=== PATIENT | male | born 1960 | race Caucasian/White ===

== ENCOUNTER 2021-11-03 12:51 | Inpatient (IN) | payer BC ==
[2021-11-03] MEDS ORDERED: NITROGLYCERIN SL TABS 0.4 MG TAB SUBLINGUAL STA (13:12)
[2021-11-03] MEDS ORDERED: HEPARIN SODIUM 1,000 UN/ML (10ML VL) IV ONE (13:12)
[2021-11-03] MEDS ORDERED: HEPARIN SODIUM 1,000 UN/ML (10ML VL) IV PRN (13:12)
--- NOTE | 2021-11-03 13:18 | ED ---
General Adult HPI - General Chief complaint: Chest Pain Stated complaint: L arm numbness,chest pain Time Seen by Provider: 11/03/21 13:06 Source: patient Mode of arrival: wheelchair Limitations: no limitations - History of Present Illness Initial comments: Dictation was produced using [employer] dictation software. please excuse any grammatical, word or spelling errors. Chief Complaint: 60-year-old male past physical history of diabetes presents to emergency department for chest pain History of Present Illness: 60-year-old male presents emergency department for chest pain. Patient was advised by his primary care doctor and was instructed to come directly to the emergency room. Patient denies any history of cardiac disease. He has history of diabetes takes multiple antidiabetic medications. Patient states his symptoms have been ongoing for last 2-3 days. States it's a pressure in his left anterior chest. It started as left upper extremity. He states he feels some tingling in his fingertips on the left side. Patient d enies any associated shortness of breath. His pain is not exacerbated with movement or with deep inspiration. States it tastes feels like symptoms are worse whenever he lays on his back or on his left side. Patient states that he does have family history of cardiac disease. States that he does have some mild active dull symptoms at this time. The ROS documented in this emergency department record has been reviewed and confirmed by me. Those systems with pertinent positive or negative responses have been documented in the HPI. All other systems are other negative and/or noncontributory. PHYSICAL EXAM: General Impression: Alert and oriented x3, not in acute distress HEENT: Normocephalic atraumatic, extra-ocular movements intact, pupils equal and reactive to light bilaterally, mucous membranes moist. Cardiovascular: Heart regular rate and rhythm Chest: Able to complete full sentences, no retractions, no tachypnea Abdomen: abdomen soft, non-tender, non-distended, no organomegaly Musculoskeletal: Pulses present and equal in all extremities, no peripheral edema Motor: no focal deficits noted Neurological: CN II-XII grossly intact, no focal motor or sensory deficits noted Skin: Intact with no visualized rashes Psych: Normal affect and mood ED course: 60-year-old male presents emergency part with clinical presentation concerning for unstable angina. Vital Signs upon arrival are within acceptable limits. EKG does not show signs of ST segment elevation AR but there are T-wave inversions in inferior leads and septal lateral leads. Patient does have active symptoms. Although mild does still have a ache to his chest radiation to the left upper extremity, his EKG does show ischemic findings.Patient took 2 adult aspirin prior to arrival. Patient started on heparin. He was given sublingual nitroglycerin. Case was immediately discussed with Dr. Ash service station console operator for cardiology. He recommended that patient be treated as an STEMI. Patient given sublingual nitroglycerin with no significant improvement of his symptoms. Laboratory evaluation obtained. CBC unremarkable. Coag panel is negative. Metabolic panel is acceptable limits. Troponin is significantly elevated at 14.90. 3rd EKG was performed at 1403 showing no dynamic changes. Patient stable at the bedside. Still having mild active symptoms. More history was obtained. He states his pain was worse last night compared to today. At the bedside he is not tachycardic or hypoxic. Patient's does still report symptoms. Case is rediscussed with Dr. Ash requested patient be prepared for cardiac catheterization. Dr. Ash reports that he will be here at approximately 3:30 PM today due to cardiac cath. Patient to be admitted to [facility]. EKG interpretation: Ventricular rate 57, [place] interval 140, QRS 95, QTc 441. No [place] prolongation, no QTC prolongation. There are T-wave inversions in the inferior leads and V3 to V6. There is no old EKG for comparison. Initial EKG was p erformed at 1300, repeat EKG performed at 1314 shows no dynamic changes. - Related Data Home Medications Medication Instructions Recorded Confirmed Acetaminophen Tab [Tylenol Tab] 1,000 mg PO Q6HR PRN 11/03/21 11/03/21 Aspirin EC [Ecotrin] 650 mg PO DAILY PRN 11/03/21 11/03/21 Pioglitazone [Actos] 45 mg PO DAILY 11/03/21 11/03/21 glipiZIDE [Glucotrol] 10 mg PO AC-BRKFST 11/03/21 11/03/21 metFORMIN HCL [Glucophage] 1,000 mg PO BID 11/03/21 11/03/21 Allergies Allergy/AdvReac Type Severity Reaction Status Date / Time No Known Allergies Allergy Verified 11/03/21 14:08 Review of Systems ROS Statement: Those systems with pertinent positive or pertinent negative responses have been documented in the HPI. ROS Other: All systems not noted in ROS Statement are negative. Past Medical History Past Medical History: Diabetes Mellitus History of Any Multi-Drug Resistant Organisms: None Reported Past Surgical History: No Surgical Hx Reported Past Psychological History: No Psychological Hx Reported Smoking Status: Current every day smoker Past Alcohol Use History: None Reported Past Drug Use History: None Reported General Exam Limitations: no limitations Course Vital Signs 11/03/21 11/03/21 12:53 13:49 Temperature 97.9 F 98.0 F Pulse Rate 76 55 L Respiratory 18 20 Rate Blood Pressure 187/95 149/84 O2 Sat by Pulse 99 96 Oximetry Medical Decision Making - Lab Data Result diagrams: 11/03/21 13:20 11/03/21 13:20 Lab Results 11/03/21 11/03/21 11/03/21 Range/Units 13:20 13:20 13:20 WBC 9.2 (3.8-10.6) k/uL RBC 4.94 (4.30-5.90) m/uL Hgb 15.0 (13.0-17.5) gm/dL Hct 43.6 (39.0-53.0) % MCV 88.1 (80.0-100.0) fL MCH 30.3 (25.0-35.0) pg MCHC 34.4 (31.0-37.0) g/dL RDW 13.2 (11.5-15.5) % Plt Count 256 (150-450) k/uL MPV 7.8 Neutrophils % 68 % Lymphocytes % 23 % Monocytes % 6 % Eosinophils % 1 % Basophils % 1 % Neutrophils # 6.3 (1.3-7.7) k/uL Lymphocytes # 2.1 (1.0-4.8) k/uL Monocytes # 0.5 (0-1.0) k/uL Eosinophils # 0.1 (0-0.7) k/uL Basophils # 0.1 (0-0.2) k/uL PT 10.7 (9.0-12.0) sec INR 1.0 (<1.2) APTT 25.8 (22.0-30.0) sec Sodium 135 L (137-145) mmol/L Potassium 3.8 (3.5-5.1) mmol/L Chloride 101 (98-107) mmol/L Carbon Dioxide 26 (22-30) mmol/L Anion Gap 8 mmol/L BUN 14 (9-20) mg/dL Creatinine 0.73 (0.66-1.25) mg/dL Est GFR (CKD-EPI)AfAm >90 (>60 ml/min/1.73 sqM) Est GFR (CKD-EPI)NonAf >90 (>60 ml/min/1.73 sqM) Glucose 247 H (74-99) mg/dL Calcium 9.3 (8.4-10.2) mg/dL Magnesium 1.7 (1.6-2.3) mg/dL Total Bilirubin 0.6 (0.2-1.3) mg/dL AST 92 H (17-59) U/L ALT 35 (4-49) U/L Alkaline Phosphatase 84 (38-126) U/L Troponin I (0.000-0.034) ng/mL Total Protein 7.4 (6.3-8.2) g/dL Albumin 4.1 (3.5-5.0) g/dL 11/03/21 Range/Units 13:20 WBC (3.8-10.6) k/uL RBC (4.30-5.90) m/uL Hgb (13.0-17.5) gm/dL Hct (39.0-53.0) % MCV (80.0-100.0) fL MCH (25.0-35.0) pg MCHC (31.0-37.0) g/dL RDW (11.5-15.5) % Plt Count (150-450) k/uL MPV Neutrophils % % Lymphocytes % % Monocytes % % Eosinophils % % Basophils % % Neutrophils # (1.3-7.7) k/uL Lymphocytes # (1.0-4.8) k/uL Monocytes # (0-1.0) k/uL Eosinophils # (0-0.7) k/uL Basophils # (0-0.2) k/uL PT (9.0-12.0) sec INR (<1.2) APTT (22.0-30.0) sec Sodium (137-145) mmol/L Potassium (3.5-5.1) mmol/L Chloride (98-107) mmol/L Carbon Dioxide (22-30) mmol/L Anion Gap mmol/L BUN (9-20) mg/dL Creatinine (0.66-1.25) mg/dL Est GFR (CKD-EPI)AfAm (>60 ml/min/1.73 sqM) Est GFR (CKD-EPI)NonAf (>60 ml/min/1.73 sqM) Glucose (74-99) mg/dL Calcium (8.4-10.2) mg/dL Magnesium (1.6-2.3) mg/dL Total Bilirubin (0.2-1.3) mg/dL AST (17-59) U/L ALT (4-49) U/L Alkaline Phosphatase (38-126) U/L Troponin I 14.900 H* (0.000-0.034) ng/mL Total Protein (6.3-8.2) g/dL Albumin (3.5-5.0) g/dL Critical Care Time Critical Care Time: Yes Total Critical Care Time: 33 Disposition Clinical Impression: Unstable angina, NSTEMI (non-ST elevated myocardial infarction) Disposition: ADMITTED IP TO THIS [facility] Condition: Critical Referrals: Nonstaff,Physician [Primary Care Provider] - 1-2 days
--- NOTE | 2021-11-03 13:37 | XR ---
EXAMINATION TYPE: XR chest 2V DATE OF EXAM: 11/03/2021 COMPARISON: NONE HISTORY: Left arm numbness and chest pain. TECHNIQUE: Frontal and lateral views of the chest are obtained. FINDINGS: There is no focal air space opacity, pleural effusion, or pneumothorax seen. The cardiac silhouette size is within normal limits. The osseous structures are intact. Overlying EKG leads. IMPRESSION: No acute process.
[2021-11-03] MEDS: HEPARIN SOD,PORK IN 0.45% NACL 25,000 UNIT in 0.45% NACL 1 250ML.BAG IV SCH (13:40)
[2021-11-03 13:43] LABS: Partial Thromboplastin Time 25.8 sec (22.0-30.0); Prothrombin Time 10.7 sec (9.0-12.0)
[2021-11-03 13:45] LABS: Basophils # (A) 0.1 k/uL (0-0.2); Basophils % (A) 1 %; Eosinophils # (A) 0.1 k/uL (0-0.7); Eosinophils % (A) 1 %; HCT 43.6 % (39.0-53.0); Lymphocytes # (A) 2.1 k/uL (1.0-4.8); Lymphocytes % (A) 23 %; MCH 30.3 pg (25.0-35.0); MCHC 34.4 g/dL (31.0-37.0); MCV 88.1 fL (80.0-100.0); Mean Platelet Volume 7.8; Monocytes # (A) 0.5 k/uL (0-1.0); Monocytes % (A) 6 %; Neutrophils # (A) 6.3 k/uL (1.3-7.7); Neutrophils % (A) 68 %; Platelet Count 256 k/uL (150-450); RBC 4.94 m/uL (4.30-5.90); RDW 13.2 % (11.5-15.5); WBC 9.2 k/uL (3.8-10.6)
[2021-11-03 13:54] LABS: ALT 35 U/L (4-49); AST 92 U/L (17-59); African American GFR (CKD) >90 (>60 ml/min/1.73 sqM); Albumin 4.1 g/dL (3.5-5.0); Alkaline Phosphatase 84 U/L (38-126); Anion Gap 8 mmol/L; Blood Urea Nitrogen 14 mg/dL (9-20); Calcium 9.3 mg/dL (8.4-10.2); Carbon Dioxide 26 mmol/L (22-30); Chloride 101 mmol/L (98-107); Glucose 247 mg/dL (74-99); Magnesium 1.7 mg/dL (1.6-2.3); Non-African American GFR(CKD) >90 (>60 ml/min/1.73 sqM); Potassium 3.8 mmol/L (3.5-5.1); Sodium 135 mmol/L (137-145); Total Bilirubin 0.6 mg/dL (0.2-1.3); Total Protein 7.4 g/dL (6.3-8.2)
[2021-11-03] MEDS ORDERED: NALOXONE 0.4 MG/ML 1 ML VIAL IV PRN (15:01)
[2021-11-03] MEDS ORDERED: SODIUM CHLORIDE 0.9% 500 ML 500 ML IV ONE (15:15)
[2021-11-03] MEDS ORDERED: fentaNYL (PF) 50 MCG/ML 2 ML AMP ONE (15:21)
[2021-11-03] MEDS ORDERED: MIDAZOLAM 2 MG/2 ML VIAL IV ONE (15:22)
[2021-11-03] MEDS ORDERED: fentaNYL (PF) 50 MCG/ML 2 ML AMP IV ONE (15:25)
[2021-11-03] MEDS ORDERED: LIDOCAINE 1% INJ 10MG/ML (20 ML MDV) SQ ONE (15:26)
[2021-11-03] MEDS ORDERED: VERAPAMIL SYRINGE (5 MG/10 ML) INTRAARTER ONE (15:30)
[2021-11-03] MEDS: HEPARIN SODIUM 1,000 UN/ML (10ML VL) IV ONE ×2 (15:38→16:18)
[2021-11-03] MEDS: NITROGLYCERIN 1000MCG/10ML SYRINGE INTRACORON ONE ×3 (15:51→16:09)
[2021-11-03] MEDS ORDERED: IOPAMIDOL-370 125ML BTL INJ ONE (16:00)
[2021-11-03] MEDS ORDERED: TICAGRELOR 90 MG TAB ONE (16:21)
[2021-11-03] MEDS ORDERED: TICAGRELOR 90 MG TAB PO ONE (16:22)
[2021-11-03] MEDS ORDERED: IOPAMIDOL-370 100ML BTL INJ ONE (16:30)
[2021-11-03] MEDS ORDERED: NITROGLYCERIN-D5W PMX 50 MG in DEXTROSE/WATER 1 250ML.BAG IV ONE (16:37)
--- NOTE | 2021-11-03 17:19 | P.HPIM ---
History of Present Illness Chief Complaint: Chest pain Patient is a 60-year-old male with past medical history significant for diabetes mellitus [id number] the presents to the hospital complaining of chest pain. This began approximately sunday been progressively getting worse sometimes intermittent in nature. Describes the pain as dull in nature that does radiate to the left arm although it to his left shoulder and anterior chest . Currently the pain is 5 out of 10 denies any episodes of nausea, vomiting, fever or chills. Patient was instructed to visit the emergency department where they did basic blood work including CBC BMP and troponin which was found to be 14. EKG was obtained cardiology was consulted and the patient was taken to cardiac catheterization. During the initial encounter after the cardiac cath patient states that extensive input in however still waiting for the final report by the cardiology team. Vital signs today 149/87 heart rate 51 saturating 98%. Past Medical History Past Medical History: Diabetes Mellitus History of Any Multi-Drug Resistant Organisms: None Reported Past Surgical History: No Surgical Hx Reported Past Psychological History: No Psychological Hx Reported Smoking Status: Current every day smoker Past Alcohol Use History: None Reported Past Drug Use History: None Reported Medications and Allergies Home Medications Medication Instructions Recorded Confirmed Type Acetaminophen Tab [Tylenol Tab] 1,000 mg PO Q6HR PRN 11/03/21 11/03/21 History Aspirin EC [Ecotrin] 650 mg PO DAILY PRN 11/03/21 11/03/21 History Pioglitazone [Actos] 45 mg PO DAILY 11/03/21 11/03/21 History glipiZIDE [Glucotrol] 10 mg PO AC-BRKFST 11/03/21 11/03/21 History metFORMIN HCL [Glucophage] 1,000 mg PO BID 11/03/21 11/03/21 History Allergies Allergy/AdvReac Type Severity Reaction Status Date / Time No Known Allergies Allergy Verified 11/03/21 14:08 Physical Exam Vitals: Vital Signs Temp Pulse Resp BP Pulse Ox 11/03/21 15:53 51 L 18 149/87 98 11/03/21 13:49 98.0 F 55 L 20 149/84 96 11/03/21 12:53 97.9 F 76 18 187/95 99 Intake and Output 11/03/21 11/03/21 11/03/21 06:59 14:59 22:59 Intake Total 100 Balance 100 Intake: IV 100 Other: Weight 77.111 kg Gen. patient is awake alert oriented 3 Cardiology normal S1/S2 Respiratory no wheezing or rhonchi appreciated Abdomen soft nontender Extremity right radial site of cardiac cath Extremities no pitting edema noted Results CBC & Chem 7: 11/03/21 13:20 11/03/21 13:20 Labs: Abnormal Lab Results - Last 24 Hours (Table) 11/03/21 11/03/21 Range/Units 13:20 13:20 Sodium 135 L (137-145) mmol/L Glucose 247 H (74-99) mg/dL AST 92 H (17-59) U/L Troponin I 14.900 H* (0.000-0.034) ng/mL Assessment and Plan Plan: Assessment: #1 chest pain secondary to ACS #2 diabetes mellitus [id number] #3 elevated cardiac troponin secondary to above Plan: -To medicine for close monitoring -Aspiration/fall precaution -EKG reviewed, cardiac troponin elevated 14 -Patient underwent cardiac catheterization as per patient 3 stents were placed over pending final report by cardiology team. -A she will require dual anti-platelet therapy most likely with aspirin plus either Plavix or Brilinta will defer to cardiology -We'll risk stratified patient with hemoglobin A1c, lipid panel, TSH reflex T4 -DVT prophylaxis
[2021-11-03] MEDS ORDERED: NITROGLYCERIN SL TABS 0.4 MG TAB SUBLINGUAL PRN (19:36)
[2021-11-03] MEDS ORDERED: ATROPINE SULFATE 0.1 MG/ML 10ML SYRINGE IV PRN (19:36)
[2021-11-03] MEDS ORDERED: ZOLPIDEM 5 MG TAB PO PRN (19:36)
[2021-11-03] MEDS ORDERED: RX INFO: IV CONTRAST WAS GIVEN 1 EACH MISC MISCELLANE PRN (19:36)
[2021-11-03] MEDS ORDERED: MAG HYDROX/AL HYDROX/SIMETH 30 ML CUP PO PRN (19:36)
--- NOTE | 2021-11-03 19:47 | P.CRDCN ---
History of Present Illness History of present illness: HISTORY OF PRESENTING ILLNESS Patient is a pleasant 60-year-old male with history of diabetes mellitus type 2, tobacco abuse who presents secondary chest pain. He states he has been having ongoing chest pain for the last 2-3 days which has come and gone. He states prior to this seizure was not having much of any pain or discomfort however this has come and gone and he also has been having some shortness breath. He denies any recent fevers, chills, cough. Initial EKG showed normal sinus rhythm with T-wave inversions inferiorly and laterally. Blood work showed initial troponin 14.9. He is stating he is still having ongoing for 10 chest pain and therefore discussed heart catheterization and patient is agreeable. REVIEW OF SYSTEMS At the time of my exam: CONSTITUTIONAL: Denies fever or chills. CARDIOVASCULAR: +chest pain, +shortness of breath, no orthopnea, PND or palpitations. RESPIRATORY: Denies cough. GASTROINTESTINAL: Denies abdominal pain, diarrhea, constipation, nausea or vomiting. MUSCULOSKELETAL: Denies myalgias. NEUROLOGIC: Denies numbness, tingling or weakness. ENDOCRINE: Denies fatigue, weight change, polydipsia or polyurina. GENITOURINARY: Denies burning, hematuria or urgency with micturation. HEMATOLOGIC: Denies history of anemia or bleeding. PHYSICAL EXAMINATION Vital signs reviewed. CONSTITUTIONAL: No apparent distress. HEENT: Head is normocephalic. Pupils are equal, round. Sclerae anicteric. Mucous membranes of the mouth are moist. No JVD. No carotid bruit. CHEST EXAMINATION: Lungs are clear to auscultation. No chest wall tenderness is noted on palpation or with deep breathing. HEART EXAMINATION: Regular rate and rhythm. S1, S2 heard. No murmurs, gallops or rub. ABDOMEN: Soft, nontender. Positive bowel sounds. EXTREMITIES: 2+ peripheral pulses, no lower extremity edema and no calf tenderness. NEUROLOGIC EXAMINATION: Patient is awake, alert and oriented x3. ASSESSMENT 1. Non-STEMI with ongoing chest pain 2. Hyperlipidemia 3. Diabetes mellitus type 2 4. Tobacco abuse 5. Hypertension, not on blood pressure medications at home PLAN Patient with ongoing chest pain and non-STEMI with EKG changes. Therefore discussed urgent heart catheterization patient is agreeable. Continue heparin drip. Check 2-D echo. Further recommendations to follow. Past Medical History Past Medical History: Diabetes Mellitus History of Any Multi-Drug Resistant Organisms: None Reported Past Surgical History: No Surgical Hx Reported Additional Past Surgical History / Comment(s): vasectomy Past Anesthesia/Blood Transfusion Reactions: No Reported Reaction Past Psychological History: No Psychological Hx Reported Smoking Status: Current every day smoker Past Alcohol Use History: None Reported Past Drug Use History: None Reported - Past Family History Father Family Medical History: No Reported History Mother Additional Family Medical History / Comment(s): colitis Medications and Allergies Home Medications Medication Instructions Recorded Confirmed Type Acetaminophen Tab [Tylenol Tab] 1,000 mg PO Q6HR PRN 11/03/21 11/03/21 History Aspirin EC [Ecotrin] 650 mg PO DAILY PRN 11/03/21 11/03/21 History Pioglitazone [Actos] 45 mg PO DAILY 11/03/21 11/03/21 History glipiZIDE [Glucotrol] 10 mg PO AC-BRKFST 11/03/21 11/03/21 History metFORMIN HCL [Glucophage] 1,000 mg PO BID 11/03/21 11/03/21 History Allergies Allergy/AdvReac Type Severity Reaction Status Date / Time No Known Allergies Allergy Verified 11/03/21 14:08 Physical Exam Vitals: Vital Signs Temp Pulse Pulse Resp BP BP Pulse Ox 11/03/21 17:33 65 18 153/83 97 11/03/21 15:53 51 L 18 149/87 98 11/03/21 13:49 98.0 F 55 L 20 149/84 96 11/03/21 12:53 97.9 F 76 18 187/95 99 Intake and Output 11/03/21 11/03/21 11/03/21 06:59 14:59 22:59 Intake Total 100 Balance 100 Intake: IV 100 Other: Weight 77.111 kg 77.111 kg Results 11/03/21 13:20 11/03/21 13:20 Cardiac Enzymes 11/03/21 11/03/21 Range/Units 13:20 13:20 AST 92 H (17-59) U/L Troponin I 14.900 H* (0.000-0.034) ng/mL Coagulation 11/03/21 Range/Units 13:20 PT 10.7 (9.0-12.0) sec APTT 25.8 (22.0-30.0) sec CBC 11/03/21 Range/Units 13:20 WBC 9.2 (3.8-10.6) k/uL RBC 4.94 (4.30-5.90) m/uL Hgb 15.0 (13.0-17.5) gm/dL Hct 43.6 (39.0-53.0) % Plt Count 256 (150-450) k/uL Comprehensive Metabolic Panel 11/03/21 Range/Units 13:20 Sodium 135 L (137-145) mmol/L Potassium 3.8 (3.5-5.1) mmol/L Chloride 101 (98-107) mmol/L Carbon Dioxide 26 (22-30) mmol/L BUN 14 (9-20) mg/dL Creatinine 0.73 (0.66-1.25) mg/dL Glucose 247 H (74-99) mg/dL Calcium 9.3 (8.4-10.2) mg/dL AST 92 H (17-59) U/L ALT 35 (4-49) U/L Alkaline Phosphatase 84 (38-126) U/L Total Protein 7.4 (6.3-8.2) g/dL Albumin 4.1 (3.5-5.0) g/dL Current Medications Generic Name Dose Route Start Last Admin Trade Name Freq PRN Reason Stop Dose Admin Al Hydroxide/Mg Hydroxide 30 ml 11/03/21 19:36 Mag Hydrox/Al Hydrox/Simeth 30 Ml Cup PO Q4HR PRN Heartburn Aspirin 81 mg 11/04/21 09:00 Aspirin 81 Mg PO DAILY [facility] Atorvastatin Calcium 80 mg 11/03/21 21:00 Atorvastatin 80 Mg Tab PO HS [facility] Atropine Sulfate 0.5 mg 11/03/21 19:36 Atropine Sulfate 0.1 Mg/Ml 10ml Syringe IV ONCE PRN Symptomatic Bradycardia Heparin Sodium (Porcine) 0 unit 11/03/21 13:12 Heparin Sodium 1,000 Un/Ml (10ml Vl) IV PER PROTOCOL PRN Low PTT Protocol Heparin Sodium/Sodium Chloride 250 mls @ 9.253 mls/hr 11/03/21 13:15 11/03/21 13:40 25,000 unit/ Sodium Chloride IV 12 units/kg/hr .Q24H BENEDICTO 9.253 mls/hr Administration Protocol 12 UNITS/KG/HR Sodium Chloride 1,000 mls @ 100 mls/hr 11/03/21 15:15 Saline 0.9% IV .Q10H BENEDICTO Sodium Chloride 1,000 ml/ IV 1,000 mls @ 77.111 mls/hr 11/03/21 19:45 Solution IV .[id number] [facility] 1 ML/KG/HR Insulin Aspart 0 unit 11/03/21 21:00 Insulin Aspart (Novolog) 100 Unit/Ml Vial SQ ACHS [facility] Protocol Metoprolol Succinate 25 mg 11/03/21 19:45 Metoprolol Succinate (Er) 25 Mg Tab.Er.24h PO DAILY [facility] Miscellaneous Information 1 each 11/03/21 19:36 Rx Info: Iv Contrast Was Given 1 Each Mis MISCELLANE 11/05/21 19:36 DAILY PRN Per Protocol Naloxone HCl 0.2 mg 11/03/21 15:01 Naloxone 0.4 Mg/Ml 1 Ml Vial IV Q2M PRN Opioid Reversal Nitroglycerin 0.4 mg 11/03/21 19:36 Nitroglycerin Sl Tabs 0.4 Mg Tab SUBLINGUAL Q5M PRN Chest Pain Ticagrelor 90 mg 11/03/21 21:00 Ticagrelor 90 Mg Tab PO BID [facility] Protocol Zolpidem Tartrate 5 mg 11/03/21 19:36 Zolpidem 5 Mg Tab PO HS PRN Insomnia Intake and Output 11/03/21 11/03/21 11/03/21 06:59 14:59 22:59 Intake Total 100 Balance 100 Intake: IV 100 Other: Weight 77.111 kg 77.111 kg Patient Weight 11/04/21 06:59 Weight 77.111 kg 11/03/21 13:20 11/03/21 13:20
--- NOTE | 2021-11-03 20:21 | P.PRCINT ---
Percutaneous Coronary Int. - Percutaneous Coronary Intervention Percutaneous Coronary Intervention: PROCEDURES PERFORMED: Left heart catheterization, bilateral coronary angiography, PCI mid to distal circumflex with 2.0 x 18 mm Burton JOSE, post dilated with 2.75NC balloon, PCI distal RCA with 2.25 x 18mm Xience JOSE, PCI proximal RCA with 2.75 x 33mm Xience JOSE, post dilated proximally with 3.5NC balloon INDICATION: NSTEMI with ongoing chest pain HISTORY: Patient is a pleasant 60-year-old male with history of tobacco abuse, hyperlipidemia, diabetes mellitus type 2 who presents with chest pain over last 2 days with ongoing chest pain and was found to have non-STEMI. Therefore urgent heart catheterization was recommended. CONSENT:I have discussed the risks, benefits and alternative therapies for the above-mentioned procedure and for both sedation/analgesia as well as necessary blood product administration, if indicated, as they pertain to this patient. The patient has indicated understanding and acceptance of the risks and procedures discussed. PROCEDURE: After the risks, benefits and alternatives of the above mentioned procedure explained in detail with the patient, informed consent was obtained. Patient was taken to the catheterization lab and prepped and draped in usual fashion. 1% lidocaine was used to anesthetize the right radial artery. A 6- Venezuelan sheath was placed in the right radial artery using modified Seldinger technique. Left coronary angiography was performed with a 5-Venezuelan JL 3.5 catheter and right coronary angiography was performed with a 5-Venezuelan JR5 catheter in various views. A 5-V[place]an FR5 catheter was inserted into the left ventricle and pressure measurements were obtained. There was triple vessel disease however given ongoing chest pain the decsion was made to perform PCI. Given 100% stenosis of the circumflex, the decision was made to start with PCI circumflex. A 6Fr CLS 3.5 guide was used to engage the left main. A 0.014 BMW wire was advanced into the distal circumflex. Heparin was given for ACT > 250. A 2.5 balloon was used to dilate the proximal portion. There was diffuse disease noted of the very small caliber approximately 1.5mm diamteter OM and therefore this was felt best treated medically and the mid to distal circumflex lesion was treated. Therefore a 2.0 x 18mm Garrison JOSE was advanced and deployed at the mid to distal circumflex. The proximal portion was post dilated with a 2.75 NC balloon. The wire was pulled and final angiograms were performed. Pre intervention there was GRAZYNA 0 flow and 100% stenosis and post intervention there was GRAZYNA 3 flow and < 10% stenosis. Patient was still having some mild chest discomfort and therefore the decision was made to perform PCI of the RCA additionally. A 6Fr AL 0.75 guide was used to engage the RCA. A 0.014 wire was advanced into the distal RCA. A 2.0 x 8mm balloon was used to pre dilate the distal RCA lesion as well as the proximal lesions. Next a 2.25 x 18mm Xience JOSE was advanced to the distal RCA and used to cover tandem 70% and 90% stenoses. Next the proximal lesions were pre dilated with the 2.25 stent balloon. The entire proximal RCA was diseased and therefore a 2.75 x 33mm Xience JOSE was advanced and deployed. The proximal portion was post dilated with a 3.5 NC balloon. The wire was pulled and final angiograms were performed. Preintervention there was distal RCA 90% and proximal 90% stenosis with GRAZYNA 3 flow and post intervention there was GRAZYNA 3 flow with < 10% stenosis. The right radial sheath was removed and a TR band was placed with hemostasis achieved. The patient tolerated the procedure well. Patient was transported back to the post catheterization holding area in stable condition. Conscious Sedation: Patient was monitored under the direct supervision of vision of myself for conscious sedation using Versed and fentanyl for a total duration of 68 minutes HEMODYNAMICS: Ao: 156/73 LV: 151/7, LVEDP 20mmHg SELECTIVE CORONARY ARTERIOGRAPHY: LEFT MAIN: The left main is a large caliber vessel which bifurcates into the LAD and circumflex. There is no significant stenosis. LEFT ANTERIOR DESCENDING CORONARY ARTERY: LAD is a large caliber vessel which wraps around to the apex. There is a long proximal to mid LAD 50-90% stenosis with the entire proximal to mid LAD diseased. The mid LAD has mild luminal irregularities. There is a distal LAD 75% stenosis at the apex. LEFT CIRCUMFLEX CORONARY ARTERY: Left circumflex is a moderate caliber vessel. There is a mid circumflex 40% stenosis followed by a 100% mid to distal circumflex stenosis. There are 2 small caliber OM branches with OM1 having a proximal 90% stenosis however noted to be approximately 1.5mm at this level. OM2 also has a proximal 50-60% stenosis. RIGHT CORONARY ARTERY: The right coronary artery is a large caliber vessel which gives off a PDA and PLV branch and is the dominant vessel. There is a long proximal 50% diffuse stenosis with more focal 90% proximal stenosis. There is a tandem 70% distal and 90% distal RCA stenosis. There is proximal PLV 50% stenosis and PDA 50% stenosis. FINAL IMPRESSION: 1. Triple vessel CAD as described above with 90% RCA, 90% proximal to mid LAD, 100% circumflex stenosis. 2. S/p successful PCI mid to distal circumflex with 2.0 x 18 mm Garrison JOSE, post dilated with 2.75NC balloon, PCI distal RCA with 2.25 x 18mm Xience JOSE, PCI proximal RCA with 2.75 x 33mm Xience JOSE, post dilated proximally with 3.5NC b alloon 3. Elevated left sided filling pressures PLAN: 1. Aggressive risk factor modification per most recent ACC/AHA guidelines. 2. Continue dual antiplatelets for 12 months. 3. Patient still has diffuse small caliber 1.5mm OM branches with obstructive disease however not ideal for angioplasty and would continue to treat medically. Additional long proximal to mid LAD lesions. Patient with improved chest pain however still with "barely 1/10" and therefore would recommend nitro drip with heparin drip with goal of chest pain free. Likely staged PCI this hospitalization.
[2021-11-03 20:36] LABS: Glucose,Whole Blood 211 mg/dL (75-99)
[2021-11-03] MEDS: TICAGRELOR 90 MG TAB PO SCH (20:39)
[2021-11-03] MEDS: INSULIN ASPART (NovoLOG) 100 UNIT/ML VIAL SQ SCH (20:39)
[2021-11-03] MEDS: ATORVASTATIN 80 MG TAB PO SCH (20:39)
[2021-11-03] MEDS: SODIUM CHLORIDE 0.9% 1,000 ML IV SCH (20:40)
[2021-11-03] MEDS: METOPROLOL SUCCINATE (ER) 25 MG TAB.ER.24H PO SCH (20:40)
[2021-11-03] MEDS: SODIUM CHLORIDE 0.9% 1,000 ML in EMPTY BAG 1 BAG IV SCH (20:40)
[2021-11-03] MEDS ORDERED: SODIUM CHLORIDE 0.9% 500 ML 250 ML IV ONE (21:02)
[2021-11-03] MEDS ORDERED: NITROGLYCERIN-D5W PMX 50 MG in DEXTROSE/WATER 1 250ML.BAG IV SCH (21:15)
[2021-11-04] MEDS: HEPARIN SOD,PORK IN 0.45% NACL 25,000 UNIT in 0.45% NACL 1 250ML.BAG IV SCH ×2 (01:51→20:10)
[2021-11-04 04:03] LABS: Basophils % (A) 0 %; Eosinophils # (A) 0.1 k/uL (0-0.7); Eosinophils % (A) 1 %; HCT 36.7 % (39.0-53.0); HGB 12.5 gm/dL (13.0-17.5); Lymphocytes # (A) 1.5 k/uL (1.0-4.8); Lymphocytes % (A) 15 %; MCH 30.2 pg (25.0-35.0); MCV 88.7 fL (80.0-100.0); Monocytes # (A) 0.7 k/uL (0-1.0); Monocytes % (A) 7 %; Neutrophils # (A) 7.7 k/uL (1.3-7.7); Neutrophils % (A) 76 %; Platelet Count 220 k/uL (150-450); RBC 4.14 m/uL (4.30-5.90); WBC 10.1 k/uL (3.8-10.6)
[2021-11-04 04:30] LABS: African American GFR (CKD) >90 (>60 ml/min/1.73 sqM); Anion Gap 2 mmol/L; Blood Urea Nitrogen 13 mg/dL (9-20); Calcium 8.5 mg/dL (8.4-10.2); Carbon Dioxide 24 mmol/L (22-30); Chloride 107 mmol/L (98-107); Glucose 197 mg/dL (74-99); Non-African American GFR(CKD) >90 (>60 ml/min/1.73 sqM); Potassium 3.7 mmol/L (3.5-5.1); Sodium 133 mmol/L (137-145)
[2021-11-04] MEDS: INSULIN ASPART (NovoLOG) 100 UNIT/ML VIAL SQ SCH ×4 (06:28→20:05)
[2021-11-04 06:29] LABS: Glucose,Whole Blood 189 mg/dL (75-99)
[2021-11-04] MEDS: SODIUM CHLORIDE 0.9% 1,000 ML IV SCH ×2 (06:29→12:30)
[2021-11-04] MEDS: TICAGRELOR 90 MG TAB PO SCH ×2 (09:11→20:08)
[2021-11-04] MEDS: METOPROLOL SUCCINATE (ER) 25 MG TAB.ER.24H PO SCH (09:12)
[2021-11-04] MEDS: ASPIRIN 81 MG PO SCH (09:12)
[2021-11-04 09:49] LABS: Chol/HDL Ratio 5.05 Ratio; LDL Cholesterol,Calculated 125.8 mg/dL (0.0-131.0)
--- NOTE | 2021-11-04 10:20 | ECHOF ---
Referral Reason:re: LV function MEASUREMENTS -------- HEIGHT: 170.2 cm WEIGHT: 77.1 kg BP: 115/63 RVIDd: 3.2 cm (< 3.3) IVSd: 1.1 cm (0.6 - 1.1) LVIDd: 4.5 cm (3.9 - 5.3) LVPWd: 1.5 cm (0.6 - 1.1) IVSs: 1.8 cm LVIDs: 3.3 cm LVPWs: 1.9 cm LAESV Index (A-L): 27.92 ml/m Ao Diam: 3.5 cm (2.0 - 3.7) AV Cusp: 2.0 cm (1.5 - 2.6) LA Diam: 3.1 cm (2.7 - 3.8) MV EXCURSION: 17.874 mm (> 18.000) MV EF SLOPE: 50 mm/s (70 - 150) EPSS: 0.5 cm MV E Gregory: 1.20 m/s MV DecT: 153 ms MV A Gregory: 1.13 m/s MV E/A Ratio: 1.06 RAP: 5.00 mmHg RVSP: 25.81 mmHg FINDINGS -------- Sinus rhythm. This was a technically adequate study. The left ventricular size is normal. Left ventricular wall thickness is normal. Overall left vent ricular systolic function is low-normal with, an EF between 50 - 55 %. Basal lateral LV wall motion is hypokinetic. Mid lateral LV wall motion is hypokinetic. The right ventricle is normal in size. Normal LA size by volume 22+/-6 ml/m2. The right atrial size is normal. Interatrial and interventricular septum intact. There is no evidence of aortic regurgitation. There is no evidence of aortic stenosis. There is trace mitral regurgitation. Mild tricuspid regurgitation present. There is no evidence of pulmonary hypertension. The right v entricular systolic pressure, as measured by Doppler, is 25.81mmHg. There is no pulmonic regurgitation present. The aortic root size is normal. IVC Not well visulized. There is no pericardial effusion. CONCLUSIONS -------- 1. The left ventricular size is normal. 2. Left ventricular wall thickness is normal. 3. Overall left ventricular systolic function is low-normal with, an EF between 50 - 55 %. 4. Basal lateral LV wall motion is hypokinetic. 5. Mid lateral LV wall motion is hypokinetic. 6. There is trace mitral regurgitation. 7. Mild tricuspid regurgitation present. PIT CREW SUPPORT WORKER: Bebe Stanley RDCS
[2021-11-04] MEDS: SODIUM CHLORIDE 0.9% 1,000 ML in EMPTY BAG 1 BAG IV SCH (11:08)
[2021-11-04 11:52] LABS: Glucose,Whole Blood 158 mg/dL (75-99)
--- NOTE | 2021-11-04 13:32 | P.PN ---
Subjective HISTORY OF PRESENTING ILLNESS Patient is a pleasant 60-year-old male with history of diabetes mellitus type 2, tobacco abuse who presents secondary chest pain. Initial EKG showed normal sinus rhythm with T-wave inversions inferiorly and laterally. Blood work showed initial troponin 14.9-->140-->77.5. Patient was taken to the laboratory chemist. Patient underwent cardiac catheterization with Dr. Ash which revealed triple vessel CAD with 90% RCA, 90% proximal to mid LAD, 100% circumflex stenosis, and elevated left sided filling pressures. Patient underwent PCI to the mid to distal circumflex, distal RCA, and proximal RCA. He was continued on IV nitro and IV heparin and recommended that patient undergo further PCI this hospitalization Echocardiogram revealed EF of 5055 percent, basal lateral and the lateral LV wall hypokinetic, mild tricuspid regurgitation 11/04/2021 Patient see and examined at bedside. He denies chest pain or shortness of breath. Last night patient did have a syncopal episode where he was walking to the bathroom, sat down, few minutes later he was found leaning against the wall and had an episode of emesis, apparently he did lose consciousness briefly. Vital signs were stable BP 103/62. Cardiology public information relations manager was paged. His Nitro drip was decreased to 5mcg/min and given a 250cc IV 0.9NaCL bolus. Patient feeling well this morning, no further episodes of syncope, chest pain or shortness of breath. EKG this morning revealed sinus rhythm HR 74, T wave inversion in inferior leads and laterally, prior ekg with similar findings. Vital signs are stable. BP 117/61. Labs, sodium 133, potassium 3.7, BUN 13.7 and 0.6, hemoglobin A1c 10.6 Patient currently maintained on IV heparin, aspirin 81 mg daily, atorvastatin 80 mg daily, metoprolol 60 5 mg daily, nitroglycerin drip, Brilinta 90 mg twice a day PHYSICAL EXAMINATION Vital signs reviewed. CONSTITUTIONAL: No apparent distress. HEENT: Neck Supple. No JVD. CHEST EXAMINATION: Lungs are clear to auscultation. No chest wall tenderness is noted on palpation or with deep breathing. HEART EXAMINATION: Regular rate and rhythm. S1, S2 heard. No murmurs, gallops or rub. ABDOMEN: Soft, nontender. Positive bowel sounds. EXTREMITIES: 2+ peripheral pulses, no lower extremity edema and no calf tenderness. NEUROLOGIC EXAMINATION: Patient is awake, alert and oriented x3. ASSESSMENT Non-STEMI s/p PCI to mid to distal circumflex, distal RCA, and proximal RCA on 11/03/2021 Hyperlipidemia Diabetes mellitus type 2 Tobacco abuse Hypertension, not on blood pressure medications at home PLAN Stop IV Fluids and IV Nitro and monitor patient Continue IV heparin Continue dual antiplaetely therapy with aspirin 81mg daily and Brilinta Continue statin, metoprolol succinate Patient with additional long proximal to mid LAD lesions. Patient will likely need staged PCI this hospitalization Further recommendations based on clinical course Objective - Vital Signs Vital signs: Vital Signs Temp 98.0 F 11/03/21 13:49 Pulse 63 11/04/21 04:00 Resp 16 11/04/21 04:00 BP 115/63 11/04/21 04:00 Pulse Ox 96 11/04/21 04:00 Intake & Output 11/03/21 11/04/21 11/04/21 18:59 06:59 18:59 Intake Total 100 5012.322 7373.164 Balance 100 9798.452 7446.164 Weight 77.111 kg Intake: IV 100 Intake, IV Titration 112.732 68.164 Amount Heparin Sod,Pork in 0.45% 112.732 68.164 NaCl 25,000 unit In 0.45 % NaCl 1 250ml.bag @ 12 UNITS/KG/HR 9.253 mls/hr IV .Q24H [facility] Rx#: [id number] Oral 970 1025 Other: Voiding Method Toilet Urinal # Voids 1 1 - Labs CBC & Chem 7: 11/04/21 03:13 11/04/21 03:13 Labs: Abnormal Lab Results - Last 24 Hours (Table) 11/03/21 11/03/21 11/03/21 Range/Units 13:20 13:20 19:51 RBC (4.30-5.90) m/uL Hgb (13.0-17.5) gm/dL Hct (39.0-53.0) % APTT (22.0-30.0) sec Sodium 135 L (137-145) mmol/L Creatinine (0.66-1.25) mg/dL Glucose 247 H (74-99) mg/dL POC Glucose (mg/dL) (75-99) mg/dL Hemoglobin A1c (0.0-6.0) % AST 92 H (17-59) U/L Troponin I 14.900 H* 140.000 H* (0.000-0.034) ng/mL HDL Cholesterol (40.00-60.00) mg/dL 11/03/21 11/03/21 11/04/21 Range/Units 20:35 22:59 03:13 RBC (4.30-5.90) m/uL Hgb (13.0-17.5) gm/dL Hct (39.0-53.0) % APTT (22.0-30.0) sec Sodium (137-145) mmol/L Creatinine (0.66-1.25) mg/dL Glucose (74-99) mg/dL POC Glucose (mg/dL) 211 H (75-99) mg/dL Hemoglobin A1c 10.6 H (0.0-6.0) % AST (17-59) U/L Troponin I 77.500 H* (0.000-0.034) ng/mL HDL Cholesterol (40.00-60.00) mg/dL 11/04/21 11/04/21 11/04/21 Range/Units 03:13 03:13 06:27 RBC 4.14 L (4.30-5.90) m/uL Hgb 12.5 L (13.0-17.5) gm/dL Hct 36.7 L (39.0-53.0) % APTT (22.0-30.0) sec Sodium 133 L (137-145) mmol/L Creatinine 0.65 L (0.66-1.25) mg/dL Glucose 197 H (74-99) mg/dL POC Glucose (mg/dL) 189 H (75-99) mg/dL Hemoglobin A1c (0.0-6.0) % AST (17-59) U/L Troponin I (0.000-0.034) ng/mL HDL Cholesterol 37.00 L (40.00-60.00) mg/dL 11/04/21 Range/Units 07:50 RBC (4.30-5.90) m/uL Hgb (13.0-17.5) gm/dL Hct (39.0-53.0) % APTT 31.4 H (22.0-30.0) sec Sodium (137-145) mmol/L Creatinine (0.66-1.25) mg/dL Glucose (74-99) mg/dL POC Glucose (mg/dL) (75-99) mg/dL Hemoglobin A1c (0.0-6.0) % AST (17-59) U/L Troponin I (0.000-0.034) ng/mL HDL Cholesterol (40.00-60.00) mg/dL
[2021-11-04 13:37] VITALS: BMI 26.6
--- NOTE | 2021-11-04 14:50 | P.PN ---
Subjective Patient was examined at bedside today not complaining of any active chest pain, shortness of breath or palpitations. Patient will be planned for another PCI during this hospital stay. Objective - Vital Signs Vital signs: Vital Signs Temp 97.8 F 11/04/21 12:00 Pulse 62 11/04/21 12:00 Resp 16 11/04/21 12:00 BP 117/61 11/04/21 12:00 Pulse Ox 96 11/04/21 12:00 Intake & Output 11/03/21 11/04/21 11/04/21 18:59 06:59 18:59 Intake Total 100 2360.716 4924.164 Balance 100 9332.063 9074.164 Weight 77.111 kg 77.111 kg Intake: IV 100 Intake, IV Titration 112.732 68.164 Amount Heparin Sod,Pork in 0.45% 112.732 68.164 NaCl 25,000 unit In 0.45 % NaCl 1 250ml.bag @ 12 UNITS/KG/HR 9.253 mls/hr IV .Q24H [facility] Rx#: [id number] Oral 970 1025 Other: Voiding Method Toilet Urinal Urinal # Voids 1 1 - Exam Gen. patient is awake alert oriented 3 Cardiology normal S1/S2 Respiratory no wheezing or rhonchi appreciated Abdomen soft nontender Extremities no pitting edema noted - Labs CBC & Chem 7: 11/04/21 03:13 11/04/21 03:13 Labs: Abnormal Lab Results - Last 24 Hours (Table) 11/03/21 11/03/21 11/03/21 Range/Units 19:51 20:35 22:59 RBC (4.30-5.90) m/uL Hgb (13.0-17.5) gm/dL Hct (39.0-53.0) % APTT (22.0-30.0) sec Sodium (137-145) mmol/L Creatinine (0.66-1.25) mg/dL Glucose (74-99) mg/dL POC Glucose (mg/dL) 211 H (75-99) mg/dL Hemoglobin A1c (0.0-6.0) % Troponin I 140.000 H* 77.500 H* (0.000-0.034) ng/mL HDL Cholesterol (40.00-60.00) mg/dL 11/04/21 11/04/21 11/04/21 Range/Units 03:13 03:13 03:13 RBC 4.14 L (4.30-5.90) m/uL Hgb 12.5 L (13.0-17.5) gm/dL Hct 36.7 L (39.0-53.0) % APTT (22.0-30.0) sec Sodium 133 L (137-145) mmol/L Creatinine 0.65 L (0.66-1.25) mg/dL Glucose 197 H (74-99) mg/dL POC Glucose (mg/dL) (75-99) mg/dL Hemoglobin A1c 10.6 H (0.0-6.0) % Troponin I (0.000-0.034) ng/mL HDL Cholesterol 37.00 L (40.00-60.00) mg/dL 11/04/21 11/04/21 11/04/21 Range/Units 06:27 07:50 11:51 RBC (4.30-5.90) m/uL Hgb (13.0-17.5) gm/dL Hct (39.0-53.0) % APTT 31.4 H (22.0-30.0) sec Sodium (137-145) mmol/L Creatinine (0.66-1.25) mg/dL Glucose (74-99) mg/dL POC Glucose (mg/dL) 189 H 158 H (75-99) mg/dL Hemoglobin A1c (0.0-6.0) % Troponin I (0.000-0.034) ng/mL HDL Cholesterol (40.00-60.00) mg/dL Assessment and Plan Plan: Assessment: #1 chest pain secondary to ACS #2 diabetes mellitus [id number] #3 elevated cardiac troponin secondary to above Plan: -To medicine for close monitoring -Aspiration/fall precaution -Patient underwent cardiac catheterization as per patient stents placed, plan for another staged PCI as per cardiology. -will require dual anti-platelet therapy most likely with aspirin plus Brilinta -Patient's hemoglobin A1c 10.6 will require insulin on discharge. We will initiate low-dose long-acting and titrate accordingly. -DVT prophylaxis
[2021-11-04 16:33] LABS: Glucose,Whole Blood 211 mg/dL (75-99)
[2021-11-04 20:07] LABS: Glucose,Whole Blood 129 mg/dL (75-99)
[2021-11-04] MEDS: INSULIN DETEMIR (LEVEMIR) 100 UNIT/ML SYR SQ SCH (20:07)
[2021-11-04] MEDS: ATORVASTATIN 80 MG TAB PO SCH (20:07)
[2021-11-05 06:12] LABS: Glucose,Whole Blood 118 mg/dL (75-99)
[2021-11-05] MEDS: INSULIN ASPART (NovoLOG) 100 UNIT/ML VIAL SQ SCH ×4 (06:19→20:22)
--- NOTE | 2021-11-05 09:22 | P.PN ---
Subjective Patient was examined at bedside today not complaining of any new symptomatology. Denies any active chest pain, shortness of breath or palpitations. Plan for staged PCI by cardiology most likely Sunday. Objective - Vital Signs Vital signs: Vital Signs Temp 97.9 F 11/04/21 20:00 Pulse 61 11/05/21 04:00 Resp 16 11/05/21 04:00 BP 115/64 11/05/21 04:00 Pulse Ox 97 11/05/21 04:00 Intake & Output 11/04/21 11/05/21 11/05/21 18:59 06:59 18:59 Intake Total 1093.164 611.659 Output Total 625 1500 Balance 468.164 -888.341 Weight 77.111 kg Intake: Intake, IV Titration 68.164 126.659 Amount Heparin Sod,Pork in 0.45% 68.164 126.659 NaCl 25,000 unit In 0.45 % NaCl 1 250ml.bag @ 12 UNITS/KG/HR 9.253 mls/hr IV .Q24H [facility] Rx#: [id number] Oral 1025 485 Output: Urine 625 1500 Other: Voiding Method Urinal Urinal # Voids 1 1 - Exam Gen. patient is awake alert oriented 3 Cardiology normal S1/S2 Respiratory no wheezing or rhonchi appreciated Abdomen soft nontender Extremities no pitting edema noted - Labs CBC & Chem 7: 11/04/21 03:13 11/04/21 03:13 Labs: Abnormal Lab Results - Last 24 Hours (Table) 11/04/21 11/04/21 11/04/21 Range/Units 03:13 03:13 11:51 APTT (22.0-30.0) sec POC Glucose (mg/dL) 158 H (75-99) mg/dL Hemoglobin A1c 10.6 H (0.0-6.0) % HDL Cholesterol 37.00 L (40.00-60.00) mg/dL 11/04/21 11/04/21 11/04/21 Range/Units 15:18 16:32 20:04 APTT 54.1 H (22.0-30.0) sec POC Glucose (mg/dL) 211 H 129 H (75-99) mg/dL Hemoglobin A1c (0.0-6.0) % HDL Cholesterol (40.00-60.00) mg/dL 11/05/21 11/05/21 Range/Units 06:11 08:28 APTT 47.3 H (22.0-30.0) sec POC Glucose (mg/dL) 118 H (75-99) mg/dL Hemoglobin A1c (0.0-6.0) % HDL Cholesterol (40.00-60.00) mg/dL Assessment and Plan Plan: Assessment: #1 chest pain secondary to ACS #2 diabetes mellitus [id number] hemoglobin A1c 10.6 #3 elevated cardiac troponin secondary to above #4 hyperlipidemia Plan: -To medicine for close monitoring -Aspiration/fall precaution -Patient underwent cardiac catheterization as per patient stents placed, plan for another staged PCI as per cardiology. -will require dual anti-platelet therapy with aspirin plus Brilinta -Patient's hemoglobin A1c 10.6 will require insulin on discharge. We will i nitiate low-dose long-acting and titrate accordingly. -Diabetic education on discharge and educated patient on insulin administration. -DVT prophylaxis
[2021-11-05 09:43] LABS: African American GFR (CKD) >90 (>60 ml/min/1.73 sqM); Anion Gap 5 mmol/L; Blood Urea Nitrogen 14 mg/dL (9-20); Calcium 8.8 mg/dL (8.4-10.2); Carbon Dioxide 21 mmol/L (22-30); Chloride 109 mmol/L (98-107); Glucose 212 mg/dL (74-99); Non-African American GFR(CKD) >90 (>60 ml/min/1.73 sqM); Potassium 3.7 mmol/L (3.5-5.1); Sodium 135 mmol/L (137-145)
[2021-11-05] MEDS: TICAGRELOR 90 MG TAB PO SCH ×2 (09:44→20:23)
[2021-11-05] MEDS: METOPROLOL SUCCINATE (ER) 25 MG TAB.ER.24H PO SCH (09:44)
[2021-11-05] MEDS: ASPIRIN 81 MG PO SCH (09:44)
[2021-11-05 11:57] LABS: Glucose,Whole Blood 196 mg/dL (75-99)
[2021-11-05 16:57] LABS: Glucose,Whole Blood 150 mg/dL (75-99)
--- NOTE | 2021-11-05 17:11 | P.PN ---
Subjective HISTORY OF PRESENTING ILLNESS Patient is a pleasant 60-year-old male with history of diabetes mellitus type 2, tobacco abuse who presents secondary chest pain. Initial EKG showed normal sinus rhythm with T-wave inversions inferiorly and laterally. Blood work showed initial troponin 14.9-->140-->77.5. Patient was taken to the lab tech. Patient underwent cardiac catheterization with Dr. Ash which revealed triple vessel CAD with 90% RCA, 90% proximal to mid LAD, 100% circumflex stenosis, and elevated left sided filling pressures. Patient underwent PCI to the mid to distal circumflex, distal RCA, and proximal RCA. He was continued on IV nitro and IV heparin and recommended that patient undergo further PCI this hospitalization Echocardiogram revealed EF of 5055 percent, basal lateral and the lateral LV wall hypokinetic, mild tricuspid regurgitation 11/04/2021 Patient see and examined at bedside. He denies chest pain or shortness of breath. Last night patient did have a syncopal episode where he was walking to the bathroom, sat down, few minutes later he was found leaning against the wall and had an episode of emesis, apparently he did lose consciousness briefly. Vital signs were stable BP 103/62. Cardiology recreation facility manager was paged. His Nitro drip was decreased to 5mcg/min and given a 250cc IV 0.9NaCL bolus. Patient feeling well this morning, no further episodes of syncope, chest pain or shortness of breath. EKG this morning revealed sinus rhythm HR 74, T wave inversion in inferior leads and laterally, prior ekg with similar findings. Vital signs are stable. BP 117/61. Labs, sodium 133, potassium 3.7, BUN 13.7 and 0.6, hemoglobin A1c 10.6 Patient currently maintained on IV heparin, aspirin 81 mg daily, atorvastatin 80 mg daily, metoprolol 25 mg daily, nitroglycerin drip, Brilinta 90 mg twice a day 11/05 Patient seen and examined. Patient denies any further chest pain. Tolerating medications. No lightheadedness. Creatinine remains stable. PHYSICAL EXAMINATION Vital signs reviewed. CONSTITUTIONAL: No apparent distress. HEENT: Neck Supple. No JVD. CHEST EXAMINATION: Lungs are clear to auscultation. No chest wall tenderness is noted on palpation or with deep breathing. HEART EXAMINATION: Regular rate and rhythm. S1, S2 heard. No murmurs, gallops or rub. ABDOMEN: Soft, nontender. Positive bowel sounds. EXTREMITIES: 2+ peripheral pulses, no lower extremity edema and no calf tenderness. NEUROLOGIC EXAMINATION: Patient is awake, alert and oriented x3. ASSESSMENT Non-STEMI s/p PCI to mid to distal circumflex, distal RCA, and proximal RCA on 11/03/2021, residual LAD disease Hyperlipidemia Diabetes mellitus type 2 Tobacco abuse Hypertension, not on blood pressure medications at home PLAN Continue IV heparin Continue dual antiplaetely therapy with aspirin 81mg daily and Brilinta Continue statin, metoprolol succinate Patient with additional long proximal to mid LAD lesions. States PCI of LAD this hospitalization either Sunday or Sunday. Objective - Vital Signs Vital signs: Vital Signs Temp 98.1 F 11/05/21 12:00 Pulse 63 11/05/21 14:00 Resp 16 11/05/21 14:00 BP 115/68 11/05/21 12:00 Pulse Ox 96 11/05/21 12:00 Intake & Output 11/04/21 11/05/21 11/05/21 18:59 06:59 18:59 Intake Total 1093.164 611.659 240 Output Total 625 1500 1200 Balance 468.164 -888.341 -960 Weight 77.111 kg Intake: Intake, IV Titration 68.164 126.659 Amount Heparin Sod,Pork in 0.45% 68.164 126.659 NaCl 25,000 unit In 0.45 % NaCl 1 250ml.bag @ 12 UNITS/KG/HR 9.253 mls/hr IV .Q24H [facility] Rx#: [id number] Oral 1025 485 240 Output: Urine 625 1500 1200 Other: Voiding Method Urinal Urinal Urinal # Voids 1 1 - Labs CBC & Chem 7: 11/04/21 03:13 11/05/21 08:28 Labs: Abnormal Lab Results - Last 24 Hours (Table) 11/04/21 11/05/21 11/05/21 Range/Units 20:04 06:11 08:28 APTT (22.0-30.0) sec Sodium 135 L (137-145) mmol/L Chloride 109 H (98-107) mmol/L Carbon Dioxide 21 L (22-30) mmol/L Glucose 212 H (74-99) mg/dL POC Glucose (mg/dL) 129 H 118 H (75-99) mg/dL 02/12/22 02/12/22 02/12/22 Range/Units 08:28 11:55 16:56 APTT 47.3 H (22.0-30.0) sec Sodium (137-145) mmol/L Chloride (98-107) mmol/L Carbon Dioxide (22-30) mmol/L Glucose (74-99) mg/dL POC Glucose (mg/dL) 196 H 150 H (75-99) mg/dL
[2021-11-05] MEDS ORDERED: Potassium Replacement Protocol 1 EACH MISC MISCELLANE PRN (17:12)
[2021-11-05] MEDS: HEPARIN SOD,PORK IN 0.45% NACL 25,000 UNIT in 0.45% NACL 1 250ML.BAG IV SCH (17:55)
[2021-11-05] MEDS ORDERED: POTASSIUM CHLORIDE ER 20 MEQ TAB.ER PO SCH (18:00)
[2021-11-05 20:06] LABS: Glucose,Whole Blood 173 mg/dL (75-99)
[2021-11-05] MEDS: INSULIN DETEMIR (LEVEMIR) 100 UNIT/ML SYR SQ SCH (20:22)
[2021-11-05] MEDS: ATORVASTATIN 80 MG TAB PO SCH (20:23)
[2021-11-06] MEDS: INSULIN ASPART (NovoLOG) 100 UNIT/ML VIAL SQ SCH ×4 (06:10→20:53)
[2021-11-06 06:11] LABS: Glucose,Whole Blood 124 mg/dL (75-99)
[2021-11-06] MEDS: ASPIRIN 81 MG PO SCH ×2 (09:21→16:17)
[2021-11-06] MEDS: TICAGRELOR 90 MG TAB PO SCH ×2 (09:21→20:53)
[2021-11-06 11:54] LABS: Glucose,Whole Blood 155 mg/dL (75-99)
[2021-11-06] MEDS: METOPROLOL SUCCINATE (ER) 25 MG TAB.ER.24H PO SCH (12:11)
[2021-11-06 12:23] LABS: Basophils % (A) 1 %; Eosinophils # (A) 0.1 k/uL (0-0.7); Eosinophils % (A) 1 %; HCT 40.1 % (39.0-53.0); HGB 13.3 gm/dL (13.0-17.5); Lymphocytes # (A) 1.7 k/uL (1.0-4.8); Lymphocytes % (A) 19 %; MCH 30.5 pg (25.0-35.0); MCHC 33.2 g/dL (31.0-37.0); Mean Platelet Volume 8.8; Monocytes # (A) 0.7 k/uL (0-1.0); Monocytes % (A) 8 %; Neutrophils # (A) 6.1 k/uL (1.3-7.7); Neutrophils % (A) 70 %; Platelet Count 181 k/uL (150-450); RBC 4.35 m/uL (4.30-5.90); RDW 13.3 % (11.5-15.5); WBC 8.8 k/uL (3.8-10.6)
[2021-11-06 12:26] LABS: African American GFR (CKD) >90 (>60 ml/min/1.73 sqM); Anion Gap 5 mmol/L; Blood Urea Nitrogen 15 mg/dL (9-20); Calcium 8.9 mg/dL (8.4-10.2); Carbon Dioxide 23 mmol/L (22-30); Chloride 108 mmol/L (98-107); Glucose 121 mg/dL (74-99); Non-African American GFR(CKD) >90 (>60 ml/min/1.73 sqM); Potassium 4.1 mmol/L (3.5-5.1); Sodium 136 mmol/L (137-145)
--- NOTE | 2021-11-06 13:51 | P.PN ---
Subjective Patient was examined at bedside today not complaining of any new chest pain, shortness of breath or palpitations. Case discussed with RN present at bedside. Objective - Vital Signs Vital signs: Vital Signs Temp 98.2 F 11/06/21 12:00 Pulse 53 L 11/06/21 12:00 Resp 16 11/06/21 12:00 BP 112/66 11/06/21 12:00 Pulse Ox 97 11/06/21 12:00 Intake & Output 11/05/21 11/06/21 11/06/21 18:59 06:59 18:59 Intake Total 960 485 Output Total 1625 Balance -665 485 Intake: Intake, IV Titration 250 Amount Heparin Sod,Pork in 0.45% 250 NaCl 25,000 unit In 0.45 % NaCl 1 250ml.bag @ 12 UNITS/KG/HR 9.253 mls/hr IV .Q24H [facility] Rx#: [id number] Oral 710 485 Output: Urine 1625 Other: Voiding Method Urinal Urinal Urinal # Voids 1 2 - Exam Gen. patient is awake alert oriented 3 Cardiology normal S1/S2 Respiratory no wheezing or rhonchi appreciated Abdomen soft nontender Extremities no pitting edema noted - Labs CBC & Chem 7: 11/06/21 07:24 11/06/21 07:24 Labs: Abnormal Lab Results - Last 24 Hours (Table) 11/05/21 11/05/21 11/06/21 Range/Units 16:56 20:03 06:09 APTT (22.0-30.0) sec Sodium (137-145) mmol/L Chloride (98-107) mmol/L Glucose (74-99) mg/dL POC Glucose (mg/dL) 150 H 173 H 124 H (75-99) mg/dL 11/06/21 11/06/21 11/06/21 Range/Units 07:24 07:24 11:52 APTT 48.5 H (22.0-30.0) sec Sodium 136 L (137-145) mmol/L Chloride 108 H (98-107) mmol/L Glucose 121 H (74-99) mg/dL POC Glucose (mg/dL) 155 H (75-99) mg/dL Assessment and Plan Plan: Assessment: #1 chest pain secondary to ACS #2 diabetes mellitus [id number] hemoglobin A1c 10.6 #3 elevated cardiac troponin secondary to above #4 hyperlipidemia Plan: -Admit to medicine for close monitoring -Aspiration/fall precaution -Patient underwent cardiac catheterization s/p stent placement, plan for another staged PCI as per cardiology. -will require dual anti-platelet therapy with aspirin plus Brilinta -Patient's hemoglobin A1c 10.6 will require insulin on discharge. We will initiate low-dose long-acting and titrate accordingly. -Diabetic education on discharge and educated patient on insulin administration. -DVT prophylaxis
--- NOTE | 2021-11-06 15:20 | P.PN ---
Subjective HISTORY OF PRESENTING ILLNESS Patient is a pleasant 60-year-old male with history of diabetes mellitus type 2, tobacco abuse who presents secondary chest pain. Initial EKG showed normal sinus rhythm with T-wave inversions inferiorly and laterally. Blood work showed initial troponin 14.9-->140-->77.5. 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 Patient underwent cardiac catheterization with Dr. Ash which revealed triple vessel CAD with 90% RCA, 90% proximal to mid LAD, 100% circumflex stenosis, and elevated left sided filling pressures. Patient underwent PCI to the mid to distal circumflex, distal RCA, and proximal RCA. He was continued on IV nitro and IV heparin and recommended that patient undergo further PCI this hospitalization Echocardiogram revealed EF of 5055 percent, basal lateral and the lateral LV wall hypokinetic, mild tricuspid regurgitation 11/04/2021 Patient see and examined at bedside. He denies chest pain or shortness of breath. Last night patient did have a syncopal episode where he was walking to the bathroom, sat down, few minutes later he was found leaning against the wall and had an episode of emesis, apparently he did lose consciousness briefly. Vital signs were stable BP 103/62. 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 His Nitro drip was decreased to 5mcg/min and given a 250cc IV 0.9NaCL bolus. Patient feeling well this morning, no further episodes of syncope, chest pain or shortness of breath. EKG this morning revealed sinus rhythm HR 74, T wave inversion in inferior leads and laterally, prior ekg with similar findings. Vital signs are stable. BP 117/61. Labs, sodium 133, potassium 3.7, BUN 13.7 and 0.6, hemoglobin A1c 10.6 Patient currently maintained on IV heparin, aspirin 81 mg daily, atorvastatin 80 mg daily, metoprolol 25 mg daily, nitroglycerin drip, Brilinta 90 mg twice a day 11/05 Patient seen and examined. Patient denies any further chest pain. Tolerating medications. No lightheadedness. Creatinine remains stable. 11/06 Patient seen and examined. Patient denies any chest pain or pressure. He denies any lightheadedness. He has had asymptomatic sinus bradycardia and therefore his metoprolol was held. He tolerated this well with heart rates in the 50s yesterday however. PHYSICAL EXAMINATION Vital signs reviewed. CONSTITUTIONAL: No apparent distress. HEENT: Neck Supple. No JVD. CHEST EXAMINATION: Lungs are clear to auscultation. No chest wall tenderness is noted on palpation or with deep breathing. HEART EXAMINATION: Regular rate and rhythm. S1, S2 heard. No murmurs, gallops or rub. ABDOMEN: Soft, nontender. Positive bowel sounds. EXTREMITIES: 2+ peripheral pulses, no lower extremity edema and no calf tenderness. NEUROLOGIC EXAMINATION: Patient is awake, alert and oriented x3. ASSESSMENT Non-STEMI s/p PCI to mid to distal circumflex, distal RCA, and proximal RCA on 11/03/2021, residual LAD disease Hyperlipidemia Diabetes mellitus type 2 Tobacco abuse Hypertension, not on blood pressure medications at home PLAN Continue IV heparin Continue dual antiplaetely therapy with aspirin 81mg daily and Brilinta Continue statin, metoprolol succinate Patient with additional long proximal to mid LAD lesions. Staged PCI of LAD this hospitalization Sunday. Objective - Vital Signs Vital signs: Vital Signs Temp 98.2 F 11/06/21 12:00 Pulse 53 L 11/06/21 12:00 Resp 16 11/06/21 12:00 BP 112/66 11/06/21 12:00 Pulse Ox 97 11/06/21 12:00 Intake & Output 11/05/21 11/06/21 11/06/21 18:59 06:59 18:59 Intake Total 960 485 Output Total 1625 Balance -665 485 Intake: Intake, IV Titration 250 Amount Heparin Sod,Pork in 0.45% 250 NaCl 25,000 unit In 0.45 % NaCl 1 250ml.bag @ 12 UNITS/KG/HR 9.253 mls/hr IV .Q24H [facility] Rx#: [id number] Oral 710 485 Output: Urine 1625 Other: Voiding Method Urinal Urinal Urinal # Voids 1 2 - Labs CBC & Chem 7: 11/06/21 07:24 11/06/21 07:24 Labs: Abnormal Lab Results - Last 24 Hours (Table) 11/05/21 11/05/21 11/06/21 Range/Units 16:56 20:03 06:09 APTT (22.0-30.0) sec Sodium (137-145) mmol/L Chloride (98-107) mmol/L Glucose (74-99) mg/dL POC Glucose (mg/dL) 150 H 173 H 124 H (75-99) mg/dL 11/06/21 11/06/21 11/06/21 Range/Units 07:24 07:24 11:52 APTT 48.5 H (22.0-30.0) sec Sodium 136 L (137-145) mmol/L Chloride 108 H (98-107) mmol/L Glucose 121 H (74-99) mg/dL POC Glucose (mg/dL) 155 H (75-99) mg/dL
[2021-11-06] MEDS ORDERED: METOPROLOL SUCCINATE (ER) 25 MG TAB.ER.24H PO STA (15:21)
[2021-11-06 15:53] LABS: Glucose,Whole Blood 99 mg/dL (75-99)
[2021-11-06] MEDS ORDERED: ALPRAZolam 0.25 MG TAB PO PRN (16:12)
[2021-11-06] MEDS ORDERED: NITROGLYCERIN SL TABS 0.4 MG TAB SUBLINGUAL PRN (16:12)
[2021-11-06] MEDS ORDERED: ALPRAZolam 0.5 MG TAB PO PRN (16:12)
[2021-11-06] MEDS: ATORVASTATIN 80 MG TAB PO SCH ×2 (16:17→20:53)
[2021-11-06] MEDS: HEPARIN SOD,PORK IN 0.45% NACL 25,000 UNIT in 0.45% NACL 1 250ML.BAG IV SCH (17:35)
[2021-11-06 20:02] LABS: Glucose,Whole Blood 173 mg/dL (75-99)
[2021-11-06] MEDS: INSULIN DETEMIR (LEVEMIR) 100 UNIT/ML SYR SQ SCH (20:53)
[2021-11-07] MEDS ORDERED: ASPIRIN 325 MG TAB PO ONE (05:00)
[2021-11-07] MEDS ORDERED: ATORVASTATIN 80 MG TAB PO ONE (05:00)
[2021-11-07 06:09] LABS: Glucose,Whole Blood 102 mg/dL (75-99)
[2021-11-07] MEDS: INSULIN ASPART (NovoLOG) 100 UNIT/ML VIAL SQ SCH ×4 (06:17→22:20)
[2021-11-07] MEDS ORDERED: HEPARIN SODIUM,PORCINE 2,500 UNIT in SODIUM CHLORIDE 0.9% 250 ML IRRIGATION PRN (07:00)
[2021-11-07] MEDS ORDERED: HEPARIN SODIUM,PORCINE 10,000 UNIT in SODIUM CHLORIDE 0.9% 1,000 ML IRRIGATION PRN (07:00)
[2021-11-07] MEDS ORDERED: LIDOCAINE 1% INJ 10MG/ML (20 ML MDV) ONE (07:19)
[2021-11-07] MEDS ORDERED: VERAPAMIL 2.5 MG/ML 2 ML AMP ONE (07:19)
[2021-11-07] MEDS ORDERED: fentaNYL (PF) 50 MCG/ML 2 ML AMP ONE (07:23)
[2021-11-07] MEDS ORDERED: LIDOCAINE 1% INJ 10MG/ML (20 ML MDV) SQ ONE (07:49)
[2021-11-07] MEDS ORDERED: MIDAZOLAM 2 MG/2 ML VIAL IV ONE (07:50)
[2021-11-07] MEDS ORDERED: VERAPAMIL SYRINGE (5 MG/10 ML) INTRAARTER ONE (07:50)
[2021-11-07] MEDS ORDERED: fentaNYL (PF) 50 MCG/ML 2 ML AMP IV ONE (07:50)
[2021-11-07] MEDS ORDERED: IV FLUID CONTINUATION 700 ML IV ONE (07:53)
[2021-11-07] MEDS ORDERED: HEPARIN SODIUM 1,000 UN/ML (10ML VL) ONE (07:54)
[2021-11-07] MEDS ORDERED: TICAGRELOR 90 MG TAB ONE (07:54)
[2021-11-07] MEDS ORDERED: HEPARIN SODIUM 1,000 UN/ML (10ML VL) IV ONE (07:56)
[2021-11-07] MEDS ORDERED: TICAGRELOR 90 MG TAB PO ONE (07:56)
[2021-11-07] MEDS: NITROGLYCERIN 1000MCG/10ML SYRINGE INTRACORON ONE ×3 (08:01→08:18)
[2021-11-07] MEDS ORDERED: IOPAMIDOL-370 125ML BTL INJ ONE (08:12)
[2021-11-07 09:32] LABS: Basophils % (A) 1 %; Eosinophils # (A) 0.1 k/uL (0-0.7); Eosinophils % (A) 1 %; HCT 39.7 % (39.0-53.0); HGB 13.1 gm/dL (13.0-17.5); Lymphocytes # (A) 1.4 k/uL (1.0-4.8); Lymphocytes % (A) 16 %; MCH 30.4 pg (25.0-35.0); MCHC 32.9 g/dL (31.0-37.0); MCV 92.3 fL (80.0-100.0); Mean Platelet Volume 8.4; Monocytes # (A) 0.6 k/uL (0-1.0); Monocytes % (A) 7 %; Neutrophils # (A) 6.4 k/uL (1.3-7.7); Neutrophils % (A) 74 %; Platelet Count 181 k/uL (150-450); RBC 4.31 m/uL (4.30-5.90); RDW 13.3 % (11.5-15.5); WBC 8.6 k/uL (3.8-10.6)
[2021-11-07] MEDS: TICAGRELOR 90 MG TAB PO SCH ×2 (09:37→22:31)
[2021-11-07] MEDS: METOPROLOL SUCCINATE (ER) 25 MG TAB.ER.24H PO SCH (09:41)
[2021-11-07 09:51] LABS: African American GFR (CKD) >90 (>60 ml/min/1.73 sqM); Anion Gap 7 mmol/L; Blood Urea Nitrogen 17 mg/dL (9-20); Calcium 8.6 mg/dL (8.4-10.2); Carbon Dioxide 19 mmol/L (22-30); Chloride 109 mmol/L (98-107); Glucose 86 mg/dL (74-99); Non-African American GFR(CKD) >90 (>60 ml/min/1.73 sqM); Sodium 135 mmol/L (137-145)
[2021-11-07 09:57] LABS: Potassium 4.4 mmol/L (3.5-5.1)
--- NOTE | 2021-11-07 10:20 | P.PN ---
<Mikael Segal - Last Filed: 11/07/21 12:19> Subjective Progress Note Date: 11/07/21 Hospital course: Patient is a very pleasant 60-year-old male with a past medical history of nsb-eieeokj-[id number] diabetes mellitus. He presented to the hospital on 11/03/21 with a chief complaint of chest pain. He was found to have significantly elevated troponins at 14.900, 140.000, and 77.500. His EKG was completed revealing T-wave inversion in inferiolateral leads II,III, aVF, V5, and V6. Patient was diagnosed as an NSTEMI and admitted under our services with consultation to cardiology. On 11/03/21 patient underwent a cardiac cath resulting in successful PCI to mid to distal circumflex, distal RCA, and proximal RCA. Patient was placed on dual antiplatelet therapy and continuation of Heparin infusion and underwent staged PCI to LAD this morning. Patient to remain on dual antiplatelet therapy with likely plan for discharge tomorrow. Cholesterol profile revealing a low HDL otherwise normal findings. Hemoglobin A1c was elevated at 10.6% on 3 different oral hypoglycemic medications. Patient will be discharged home on long-acting insulin in addition to oral agents. Physical exam: Patient seen and fully evaluated at the bedside upon return from cardiac cath. Patient underwent successful stenting to LAD. Patient currently denying having any complaints including headache, lightheadedness, dizziness, chest pain, palpitations, shortness of breath, or experiencing any numbness/tingling/weak ness in his extremities. Cardiac cath access site right wrist, TR band in place. Patient denies having any numbness/tingling in right hand. Vital signs reviewed and stable. General: Nontoxic, no distress and appears stated age. Derm: Skin warm and dry, normal coloration for ethnicity. Head: Atraumatic, normocephalic and symmetric. Eyes: EOMs intact, no lid lag, and anicteric sclera Mouth: no lip lesions, mucus membranes moist Cardiovascular: regular rate and rhythm with normal S1S2, no murmur, positive posterior tibial pulses bilaterally, and cap refill < 2 seconds. Cardiac cath access site right wrist, TR band in place no signs of bleeding or hematoma at this time. Lungs: Respirations even, regular, and unlabored on room air. Lungs CTA bilaterally, no rhonchi, no rales, no wheezing, and no accessory muscle usage. Abdominal: soft, nontender to palpation, no guarding, no appreciable organomegaly Ext: ROM intact. No gross muscle atrophy, no edema, no contractures Neuro: Speech clear, face symmetrical and CN II-XII grossly intact with no noted focal neuro deficits Psych: Alert and oriented to person, place, time, and situation. Appropriate and pleasant affect. Assessment and Plan of Care: NSTEMI status post cardiac cath on 11/03/21 resulting in successful PCI to mid to distal circumflex, distal RCA, and proximal RCA and again staged PCI to LAD on 11/07/21 -Cardiology following -Patient to receive continued telemetry monitoring -Continue dual antiplatelet therapy with aspirin and Brilinta -Continue atorvastatin and metoprolol. -Hemoglobin A1c of 10.6% on 3 separate oral hypoglycemic medications, plans for patient to be discharged home on long-acting insulin in addition to oral medication regimen. Poorly controlled type 2 diabetes mellitus with hemoglobin A1c of 10.6% -Upon discharge, Patient to continue oral hypoglycemic medications and plans for discharge home on long-acting insulin. -Currently patient has been on NovoLog sliding scale along with long acting Levemir 5 units, increase to 10 units daily. -Diabetes teaching, discussed with RN patient to administer her own insulin and received teaching throughout remainder of stay. CODE STATUS: Full code DVT prophylaxis: Heparin Discussed with: Patient and RN Anticipated discharge date: Tomorrow morning Anticipated discharge place: Home A total of 45 minutes was spent on the care of this complex patient more than 50% of the time was spent in counseling and care coordination. Objective - Vital Signs Vital signs: Vital Signs Temp 98.1 F 11/07/21 08:43 Pulse 58 L 11/07/21 04:00 Resp 18 11/07/21 08:43 BP 108/62 11/07/21 08:43 Pulse Ox 97 11/07/21 08:43 Intake & Output 11/06/21 11/07/21 11/07/21 18:59 06:59 18:59 Intake Total 250 0 300 Balance 250 0 300 Intake: IV 300 Intake, IV Titration 250 Amount Heparin Sod,Pork in 0.45% 250 NaCl 25,000 unit In 0.45 % NaCl 1 250ml.bag @ 12 UNITS/KG/HR 9.253 mls/hr IV .Q24H [facility] Rx#: [id number] Oral 0 Other: Voiding Method Urinal Urinal # Voids 2 2 - Labs CBC & Chem 7: 11/07/21 09:00 11/07/21 09:00 Labs: Abnormal Lab Results - Last 24 Hours (Table) 11/06/21 11/06/21 11/06/21 Range/Units 07:24 11:52 19:57 APTT (22.0-30.0) sec Sodium 136 L (137-145) mmol/L Chloride 108 H (98-107) mmol/L Carbon Dioxide (22-30) mmol/L Glucose 121 H (74-99) mg/dL POC Glucose (mg/dL) 155 H 173 H (75-99) mg/dL 11/07/21 11/07/21 11/07/21 Range/Units 06:07 09:00 09:00 APTT 88.2 H (22.0-30.0) sec Sodium 135 L (137-145) mmol/L Chloride 109 H (98-107) mmol/L Carbon Dioxide 19 L (22-30) mmol/L Glucose (74-99) mg/dL POC Glucose (mg/dL) 102 H (75-99) mg/dL <Masha Obrien - Last Filed: 11/07/21 18:20> Subjective Mikael Segal NP rendered care for this patient independently, reviewed the findings and plan as documented in the note above. I did not physically speak with or examine the patient on this date. Objective - Vital Signs Vital signs: Vital Signs Temp 98.3 F 11/07/21 16:00 Pulse 56 L 11/07/21 16:00 Resp 16 11/07/21 16:00 BP 123/76 11/07/21 16:00 Pulse Ox 97 11/07/21 16:00 Intake & Output 11/06/21 11/07/21 11/07/21 18:59 06:59 18:59 Intake Total 250 0 500 Balance 250 0 500 Intake: IV 300 Intake, IV Titration 250 Amount Heparin Sod,Pork in 0.45% 250 NaCl 25,000 unit In 0.45 % NaCl 1 250ml.bag @ 12 UNITS/KG/HR 9.253 mls/hr IV .Q24H [facility] Rx#: [id number] Oral 0 200 Other: Voiding Method Urinal Urinal # Voids 2 2 - Labs CBC & Chem 7: 11/07/21 09:00 11/07/21 09:00 Labs: Abnormal Lab Results - Last 24 Hours (Table) 11/06/21 11/07/21 11/07/21 Range/Units 19:57 06:07 09:00 APTT (22.0-30.0) sec Sodium 135 L (137-145) mmol/L Chloride 109 H (98-107) mmol/L Carbon Dioxide 19 L (22-30) mmol/L POC Glucose (mg/dL) 173 H 102 H (75-99) mg/dL 11/07/21 11/07/21 11/07/21 Range/Units 09:00 11:41 16:11 APTT 88.2 H (22.0-30.0) sec Sodium (137-145) mmol/L Chloride (98-107) mmol/L Carbon Dioxide (22-30) mmol/L POC Glucose (mg/dL) 163 H 130 H (75-99) mg/dL
[2021-11-07 11:44] LABS: Glucose,Whole Blood 163 mg/dL (75-99)
[2021-11-07] MEDS ORDERED: glipiZIDE 10 MG TAB PO SCH (12:30)
[2021-11-07] MEDS ORDERED: PIOGLITAZONE 45 MG TAB PO SCH (12:30)
--- NOTE | 2021-11-07 13:46 | P.PRCINT ---
Percutaneous Coronary Int. - Percutaneous Coronary Intervention Percutaneous Coronary Intervention: PROCEDURES PERFORMED: Left coronary angiography, PCI proximal to mid LAD with overlapping 2.5 x 18mm and 2.5 x 38mm Xience JOSE, post dilated with a 3.25 NC balloon INDICATION: Staged PCI HISTORY: Patient is a pleasant 60-year-old male with history of tobacco abuse, hyperlipidemia, diabetes mellitus type 2 who presents with chest pain over last 2 days with ongoing chest pain and was found to have non-STEMI. Prior cath showed 3 vessel disease and given ongoing chest pain PCI was performed of OM and RCA. Given further LAD disease, recommendation was for PCI of LAD. CONSENT:I have discussed the risks, benefits and alternative therapies for the above-mentioned procedure and for both sedation/analgesia as well as necessary blood product administration, if indicated, as they pertain to this patient. The patient has indicated understanding and acceptance of the risks and procedures discussed. PROCEDURE: After the risks, benefits and alternatives of the above mentioned procedure explained in detail with the patient, informed consent was obtained. Patient was taken to the catheterization lab and prepped and draped in usual fashion. 1% lidocaine was used to anesthetize the right radial artery. A 6-Fr ench sheath was placed in the right radial artery using modified Seldinger technique. A 6Fr CLS 3.0 guide was used to engage the left main. A 0.014 BMW wire was advanced into the distal LAD. Heparin was given for ACT > 250. A 2.25 x 20mm balloon was used to dilate the long lesion. Next a 2.5 x 38mm Xience JOSE was advanced to the mid LAD. A second 2.5 x 18mm Xience JOSE was advanced to the pro ximal LAD to overlap with the other stent. The proximal to mid stent was post dilated with a 3.25 NC balloon. The wire was pulled and final angiograms were performed. Pre intervention there was GRAZYNA 3 flow and 90% stenosis and post intervention there was GRAZYNA 3 flow and < 10% stenosis. The right radial sheath was removed and a TR band was placed with hemostasis achieved. The patient tolerated the procedure well. Patient was transported back to the post catheterization holding area in stable condition. Conscious Sedation: Patient was monitored under the direct supervision of vision of myself for conscious sedation using Versed and fentanyl for a total duration of 36 minutes SELECTIVE CORONARY ARTERIOGRAPHY: LEFT MAIN: The left main is a large caliber vessel which bifurcates into the LAD and circumflex. There is no significant stenosis. LEFT ANTERIOR DESCENDING CORONARY ARTERY: LAD is a large caliber vessel which wraps around to the apex. There is a long proximal to mid LAD 50-90% stenosis with the entire proximal to mid LAD diseased. The mid LAD has mild luminal irregularities. There is a distal LAD 75% stenosis at the apex. LEFT CIRCUMFLEX CORONARY ARTERY: Left circumflex is a moderate caliber vessel. There is a mid circumflex 40% stenosis followed by a patent mid to distal circumflex stent. There are 2 small caliber OM branches with OM1 having a proximal 90% stenosis however noted to be approximately 1.5mm at this level. OM2 also has a proximal 50-60% stenosis. RIGHT CORONARY ARTERY: The right coronary artery was not imaged FINAL IMPRESSION: 1. CAD as described above with 90% proximal to mid LAD s/p PCI proximal to mid LAD with overlapping 2.5 x 18mm and 2.5 x 38mm Xience JOSE, post dilated with a 3.25 NC balloon PLAN: 1. Aggressive risk factor modification per most recent ACC/AHA guidelines. 2. Continue dual antiplatelets for 12 months.
[2021-11-07 16:13] LABS: Glucose,Whole Blood 130 mg/dL (75-99)
[2021-11-07] MEDS ORDERED: INSULIN ASPART (NovoLOG) 100 UNIT/ML VIAL SQ SCH (17:30)
[2021-11-07 20:10] LABS: Glucose,Whole Blood 94 mg/dL (75-99)
[2021-11-07] MEDS ORDERED: INSULIN DETEMIR (LEVEMIR) 100 UNIT/ML SYR SQ SCH (21:00)
[2021-11-07] MEDS: ATORVASTATIN 80 MG TAB PO SCH (22:31)
[2021-11-08 06:21] LABS: Glucose,Whole Blood 103 mg/dL (75-99)
[2021-11-08] MEDS: INSULIN ASPART (NovoLOG) 100 UNIT/ML VIAL SQ SCH ×2 (06:25→11:35)
[2021-11-08 08:19] VITALS: PULSE 54
[2021-11-08] MEDS: ASPIRIN 81 MG PO SCH (09:58)
[2021-11-08] MEDS: TICAGRELOR 90 MG TAB PO SCH (09:58)
[2021-11-08] MEDS: METOPROLOL SUCCINATE (ER) 25 MG TAB.ER.24H PO SCH (09:59)
[2021-11-08 11:14] VITALS: BP 125/73; RESP 16; TEMP 97.4
[2021-11-08 11:24] LABS: Glucose,Whole Blood 78 mg/dL (75-99)
--- NOTE | 2021-11-08 11:40 | P.DS ---
<Mikael Segal - Last Filed: 11/08/21 12:38> Providers Expected date of discharge: 11/08/21 Hospital Course: Discharge Diagnosis: NSTEMI status post cardiac cath on 11/03/21 resulting in successful PCI to mid to distal circumflex, distal RCA, and proximal RCA and again staged PCI to LAD on 11/07/21 Poorly controlled type 2 diabetes mellitus with hemoglobin A1c of 10.6% -Hemoglobin A1c of 10.6% on 3 separate oral hypoglycemic medications, patient being discharged home on long-acting insulin in addition to Glucophage and glipizide. Patient instructed to monitor blood glucose levels 3 times daily and monitor for any signs/symptoms of hypoglycemia. Hospital Course: Patient is a very pleasant 60-year-old male with a past medical history of [id number] diabetes mellitus. He presented to the hospital on 11/03/21 with a chief complaint of chest pain. He was found to have significantly elevated troponins at 14.900, 140.000, and 77.500. His EKG was completed revealing T-wave inversion in inferiolateral leads II,III, aVF, V5, and V6. Patient was diagnosed as an NSTEMI and admitted under our services with consultation to cardiology. On 11/03/21 patient underwent a cardiac cath result ing in successful PCI to mid to distal circumflex, distal RCA, and proximal RCA. Patient was placed on dual antiplatelet therapy and continuation of Heparin infusion and underwent staged PCI to LAD 11/07/21. Cholesterol profile revealing a low HDL otherwise normal findings. Hemoglobin A1c of 10.6% on 3 separate oral hypoglycemic medications, patient being discharged home on long-acting insulin in addition to Glucophage and glipizide. Patient instructed to monitor blood glucose levels 3 times daily and monitor for any signs/symptoms of hypoglycemia. Pt instructed to document blood glucose levels in journal/log to bring with him to his next doctor's appointment as further adjustments to these medications may be needed. Pt is being discharged home with prescriptions for metoprolol succinate, atorvastatin, insulin detemir/Levemir, Brilinta, aspirin, and nitroglycerin tablets. Physical exam: Patient seen and fully evaluated at the bedside. He is doing well and denies any headache, lightheadedness, dizziness, chest pain, palpitations, shortness of breath, or experiencing any numbness/tingling/weakness in his extremities. Cardiac cath access site right wrist, mild bruising surrounding, no hematoma or drainage. Patient denies having any numbness/tingling in right hand. Patient has been cleared from cardiac standpoint and is medically stable for discharge home at this time. Prescription sent to [facility]. Patient educated on discharge plan and received diabetic teaching. Vital signs reviewed and stable. General: Nontoxic, no distress and appears stated age. Derm: Skin warm and dry, normal coloration for ethnicity. Head: Atraumatic, normocephalic and symmetric. Eyes: EOMs intact, no lid lag, and anicteric sclera Mouth: no lip lesions, mucus membranes moist Cardiovascular: regular rate and rhythm with normal S1S2, no murmur, positive posterior tibial pulses bilaterally, and cap refill < 2 seconds. Cardiac cath access site right wrist, TR band in place no signs of bleeding or hematoma at this time. Lungs: Respirations even, regular, and unlabored on room air. Lungs CTA bilaterally, no rhonchi, no rales, no wheezing, and no accessory muscle usage. Abdominal: soft, nontender to palpation, no guarding, no appreciable organomegaly Ext: ROM intact. No gross muscle atrophy, no edema, no contractures Neuro: Speech clear, face symmetrical and CN II-XII grossly intact with no noted focal neuro deficits Psych: Alert and oriented to person, place, time, and situation. Appropriate and pleasant affect. A total of 50 minutes of time were spent preparing this complex discharge summary. Patient Condition at Discharge: Stable Plan - Discharge Summary Discharge Rx Participant: Yes New Discharge Prescriptions: New Nitroglycerin Sl Tabs [Nitrostat] 0.4 mg SUBLINGUAL Q5M PRN #25 tab PRN Reason: Chest Pain Aspirin 81 mg PO DAILY 30 Days #30 tab Ticagrelor [Brilinta] 90 mg PO BID 30 Days #60 tab Insulin Detemir [Levemir Flextouch Pen] 10 units SQ HS #5 pen Atorvastatin [Lipitor] 80 mg PO HS 30 Days #30 tab Metoprolol Succinate (ER) [Toprol XL] 25 mg PO DAILY 30 Days #30 tab Continue Acetaminophen Tab [Tylenol] 1,000 mg PO Q6HR PRN PRN Reason: Pain metFORMIN HCL [Glucophage] 1,000 mg PO BID glipiZIDE [Glucotrol] 10 mg PO AC-BRKFST Discontinued Aspirin EC [Ecotrin] 650 mg PO DAILY PRN PRN Reason: Chest Pain Pioglitazone [Actos] 45 mg PO DAILY Discharge Medication List Acetaminophen Tab [Tylenol] 1,000 mg PO Q6HR PRN 11/03/21 [History] glipiZIDE [Glucotrol] 10 mg PO AC-BRKFST 11/03/21 [History] metFORMIN HCL [Glucophage] 1,000 mg PO BID 11/03/21 [History] Aspirin 81 mg PO DAILY 30 Days #30 tab 11/04/21 [Rx] Nitroglycerin Sl Tabs [Nitrostat] 0.4 mg SUBLINGUAL Q5M PRN #25 tab 11/04/21 [Rx] Ticagrelor [Brilinta] 90 mg PO BID 30 Days #60 tab 11/04/21 [Rx] Atorvastatin [Lipitor] 80 mg PO HS 30 Days #30 tab 11/08/21 [Rx] Insulin Detemir [Levemir Flextouch Pen] 10 units SQ HS #5 pen 11/08/21 [Rx] Metoprolol Succinate (ER) [Toprol XL] 25 mg PO DAILY 30 Days #30 tab 11/08/21 [Rx] Follow up Appointment(s)/Referral(s): Davonte Ash DO [STAFF PHYSICIAN] - 1 Week (The office will call you with appointment date and time.) Curtis Le MD [STAFF PHYSICIAN] - 1 Week Patient Instructions/Handouts: *Surgery [facility] - After Heart Catheterization - [facility] Instructions Activity/Diet/Wound Care/Special Instructions: Activity: As tolerated. Take breaks as needed. Diet: Heart healthy and carb consistent diet. Avoid salts, or foods with hidden salts such as canned or boxed foods and frozen dinners. Extra salt makes your heart work harder and traps the fluid in your body for longer. Special Instructions: Take all of your medications as directed and remember to keep all of your doctor's appointments and follow-up as needed. Thank you for allowing us to participate in your care, it was truly a pleasure having you for our patient!!! Remember, as we discussed it is important for you to monitor your blood glucose levels 3 times daily and document in a log/terminal tapering with you to your next doctor's appointment. You have been started on insulin as we discussed, it is also important to follow up carb consistent and heart healthy diet. Patient has Free 1st month coupon and copay card at bedside for Brilinta. [employer] can supply your Glucometer and testing supplies through your insurance the cost is $103.69. [facility] has a free glucometer and low cost testing supplies you could check to see if this is a better deal. [address], [place] [address], . Discharge Disposition: HOME SELF-CARE <Masha Obrien - Last Filed: 11/09/21 17:14> Providers Date of admission: 11/03/21 15:01 Attending physician: Ankush Linda MD Consults: 11/03/21 13:21 Consult Physician Routine Consulting Provider: Davonte Ash Consult Reason/Comments: unstable angina Do you want consulting provider notified?: Already Contacted 11/03/21 19:36 Consult Physician Routine Consulting Provider: [facility] Consult Reason/Comments: Post Interventional patient Do you want consulting provider notified?: Already Contacted Primary care physician: Physician Nonstaff Hospital Course: Mikael Segal NP rendered care for this patient independently, reviewed the findin gs and plan as documented in the note above. I did not physically speak with or examine the patient on this date.
[2021-11-08] MEDS: HEPARIN SOD,PORK IN 0.45% NACL 25,000 UNIT in 0.45% NACL 1 250ML.BAG IV SCH (12:11)
--- NOTE | 2021-11-08 12:24 | P.PN ---
Subjective HISTORY OF PRESENTING ILLNESS Patient is a pleasant 60-year-old male with history of diabetes mellitus type 2, tobacco abuse who presents secondary chest pain. Initial EKG showed normal sinus rhythm with T-wave inversions inferiorly and laterally. Blood work showed initial troponin 14.9-->140-->77.5. Patient was taken to the catheter builder. Patient underwent cardiac catheterization with Dr. Ash which revealed triple vessel CAD with 90% RCA, 90% proximal to mid LAD, 100% circumflex stenosis, and elevated left sided filling pressures. Patient underwent PCI to the mid to distal circumflex, distal RCA, and proximal RCA. He was continued on IV nitro and IV heparin and recommended that patient undergo further PCI to the LAD this hospitalization. IV heparin and Nitro has been stopped and On 11/07, patient underwent s/p PCI proximal to mid LAD with Dr. Ash. Echocardiogram revealed EF of 5055 percent, basal lateral and the lateral LV w all hypokinetic, mild tricuspid regurgitation 11/08/2021 Patient see and examined at bedside. He denies chest pain or shortness of breath. He is feeling well this morning. Vital signs are stable. No further episodes of syncope, chest pain or shortness of breath. Right radial cath site clean, dry intact 2+ pulses no hematoma . Blood pressure 125/73, heart rate 54, afebrile, saturation 98% on room air Patient currently maintained on aspirin 81 mg daily, atorvastatin 80 mg daily, metoprolol succinate 25mg daily, Brilinta 90 mg twice a day PHYSICAL EXAMINATION Vital signs reviewed. CONSTITUTIONAL: No apparent distress. HEENT: Neck Supple. No JVD. CHEST EXAMINATION: Lungs are clear to auscultation. No chest wall tenderness is noted on palpation or with deep breathing. HEART EXAMINATION: Regular rate and rhythm. S1, S2 heard. No murmurs, gallops or rub. ABDOMEN: Soft, nontender. Positive bowel sounds. EXTREMITIES: 2+ peripheral pulses, no lower extremity edema and no calf tenderness. NEUROLOGIC EXAMINATION: Patient is awake, alert and oriented x3. ASSESSMENT Non-STEMI s/p PCI to mid to distal circumflex, distal RCA, and proximal RCA on 11/03/2021 and proximal to mid LAD 11/07/2021 Hyperlipidemia Diabetes mellitus type 2 Tobacco abuse Hypertension, not on blood pressure medications at home PLAN From cardiology perspective, patient stable to be discharged home. Continue dual antiplatelet therapy with aspirin 81mg daily and Brilinta Continue statin, metoprolol succinate Patient to follow-up with Dr. Ash in one week. Objective - Vital Signs Vital signs: Vital Signs Temp 97.4 F L 11/08/21 11:13 Pulse 54 L 11/08/21 11:13 Resp 16 11/08/21 11:13 BP 125/73 11/08/21 11:13 Pulse Ox 98 11/08/21 11:13 Intake & Output 11/07/21 11/08/21 11/08/21 18:59 06:59 18:59 Intake Total 500 900 218 Balance 500 900 218 Intake: IV 300 Oral 200 900 218 Other: Voiding Method Urinal Urinal Toilet # Voids 1 2 - Labs CBC & Chem 7: 11/07/21 09:00 11/07/21 09:00 Labs: Abnormal Lab Results - Last 24 Hours (Table) 11/07/21 11/08/21 Range/Units 16:11 06:12 POC Glucose (mg/dL) 130 H 103 H (75-99) mg/dL
[2021-11-08] MEDS ORDERED: INSULN ASP PRT/INSULIN ASPART 100 UNIT/ML 10 ML VIAL SQ SCH ×2 (14:45→17:30)
== END 2021-11-08 16:00 | disposition home or self-care (01) | DRG 246 ==
LOC: EC 12:51 → 3SCARD 15:01
PROVIDERS: ADMIT Hospitalist; ATTEND Hospitalist
PROC: B2111ZZ Fluoroscopy of Multiple Coronary Arteries using Low Osmolar Contrast (ICD-10-PCS; principal; 2021-11-03 15:02)
PROC: 4A023N7 Measurement of Cardiac Sampling and Pressure, Left Heart, Percutaneous Approach (ICD-10-PCS; principal; 2021-11-03 15:02)
PROC: 027136Z Dilation of Coronary Artery, Two Arteries with Three Drug-eluting Intraluminal Devices, Percutaneous Approach (ICD-10-PCS; principal; 2021-11-03 15:02)
PROC: B2111ZZ Fluoroscopy of Multiple Coronary Arteries using Low Osmolar Contrast (ICD-10-PCS; 2021-11-07)
PROC: 027035Z Dilation of Coronary Artery, One Artery with Two Drug-eluting Intraluminal Devices, Percutaneous Approach (ICD-10-PCS; 2021-11-07)
DX: I21.4 Non-ST elevation (NSTEMI) myocardial infarction (principal); E11.65 Type 2 diabetes mellitus with hyperglycemia; I25.110 Atherosclerotic heart disease of native coronary artery with unstable angina pectoris; E78.5 Hyperlipidemia, unspecified; I10 Essential (primary) hypertension; R00.1 Bradycardia, unspecified; I07.1 Rheumatic tricuspid insufficiency; F17.210 Nicotine dependence, cigarettes, uncomplicated; Z71.6 Tobacco abuse counseling; Z79.82 Long term (current) use of aspirin; Z79.84 Long term (current) use of oral hypoglycemic drugs; Z79.899 Other long term (current) drug therapy; Z98.52 Vasectomy status; Z82.49 Family history of ischemic heart disease and other diseases of the circulatory system
CPT/HCPCS: 36415; 71046; 80048; 80053; 80061; 83036; 83735; 84443; 84484; 85025; 85610; 85730; 93005; 93306; 93458; 96374; 99291

== ENCOUNTER → 2025-01-21 | Outpatient (CLI) | payer BC ==
[2025-01-21 15:37] LABS: Blood Urea Nitrogen 13.4 mg/dL (9.0-27.0); Carbon Dioxide 21.3 mmol/L (21.6-31.8); Chloride 101 mmol/L (96-109); Potassium 4.3 mmol/L (3.5-5.5); Sodium 136 mmol/L (135-145)
[2025-01-21 15:41] LABS: HCT 39.9 % (39.6-50.0); HGB 13.6 g/dL (13.0-17.0); MCH 31.2 pg (27.0-32.0); MCHC 34.1 g/dL (32.0-37.0); MCV 91.5 FL (80.0-97.0); Mean Platelet Volume 10.8 FL (9.5-12.2); NRBC Per 100 WBC 0 X 10*3/uL (0.00-0.01); Platelet Count 236 X 10*3/uL (140-440); RBC 4.36 X 10*6/uL (4.40-5.60); RDW 12.8 % (11.5-14.5)
== END | disposition home or self-care (01) ==
LOC: LABPAT 10:26
PROVIDERS: ATTEND Internal Medicine
DX: Z01.812 Encounter for preprocedural laboratory examination (principal); I25.10 Atherosclerotic heart disease of native coronary artery without angina pectoris; R06.02 Shortness of breath; R94.39 Abnormal result of other cardiovascular function study
CPT/HCPCS: 80051; 82565; 84520; 85027

== ENCOUNTER 2025-01-26 07:10 | Day surgery (SDC) | payer BC ==
[~2025-01-26 07:10] MED LIST: ALPRAZolam 0.25 MG TAB PO PRN; ALPRAZolam 0.5 MG TAB PO PRN; ASPIRIN 325 MG TAB PO STA; HEPARIN SODIUM,PORCINE (1 ML) 2,500 UNIT in SODIUM CHLORIDE 0.9% 250 ML IRRIGATION PRN; HEPARIN SODIUM,PORCINE 10,000 UNIT in SODIUM CHLORIDE 0.9% 1,000 ML IRRIGATION PRN; NITROGLYCERIN SL TABS 0.4 MG TAB SUBLINGUAL PRN; SODIUM CHLORIDE 0.9% 1,000 ML in EMPTY BAG 1 BAG IV SCH
[2025-01-26 08:06] VITALS: RESP 18; TEMP 97.8
[2025-01-26] MEDS: IV FLUID CONTINUATION 1,000 ML IV ONE ×2 (08:06→12:00)
[2025-01-26 08:09] LABS: Basophils # (A) 0.08 10*3/uL (0.00-0.10); Basophils % (A) 0.8 %; Eosinophils # (A) 0.25 10*3/uL (0.04-0.35); Eosinophils % (A) 2.5 %; HCT 36.9 % (39.6-50.0); HGB 12.9 g/dL (13.0-17.0); Lymphocytes # (A) 1.77 10*3/uL (0.90-5.00); Lymphocytes % (A) 17.9 %; MCH 31.3 pg (27.0-32.0); MCV 89.6 fL (80.0-97.0); Mean Platelet Volume 9.9 fL (9.5-12.2); Monocytes # (A) 0.97 10*3/uL (0.20-1.00); Monocytes % (A) 9.8 %; Neutrophils # (A) 6.79 10*3/uL (1.80-7.70); Neutrophils % (A) 68.7 %; Platelet Count 260 10*3/uL (140-440); RBC 4.12 10*6/uL (4.40-5.60); RDW 12.4 % (11.5-14.5); WBC 9.89 10*3/uL (4.50-10.00)
[2025-01-26 08:12] LABS: Glucose,Whole Blood 182 mg/dL (70-110)
[2025-01-26] MEDS: fentaNYL (PF) 50 MCG/ML 2 ML AMP IVP ONE (08:20)
[2025-01-26] MEDS: MIDAZOLAM 2 MG/2 ML VIAL IVP ONE (08:20)
[2025-01-26 08:21] LABS: African American GFR (CKD) >90 (>60 ml/min/1.73 sqM); Anion Gap 6 mmol/L; Blood Urea Nitrogen 11 mg/dL (9-20); Calcium 9.2 mg/dL (8.4-10.2); Carbon Dioxide 30 mmol/L (22-30); Chloride 101 mmol/L (98-107); Glucose 185 mg/dL (74-99); Non-African American GFR(CKD) >90 (>60 ml/min/1.73 sqM); Potassium 4.2 mmol/L (3.5-5.1); Sodium 137 mmol/L (137-145)
[2025-01-26] MEDS: LIDOCAINE 1% INJ 10MG/ML (20 ML MDV) SQ ONE ×2 (08:22→08:23)
[2025-01-26] MEDS: VERAPAMIL SYRINGE (5 MG/10 ML) INTRAARTER ONE (08:24)
[2025-01-26] MEDS: HEPARIN SODIUM 1,000 UN/ML (10ML VL) IVP ONE ×4 (08:26→09:03)
[2025-01-26] MEDS: HEPARIN SODIUM,PORCINE (1 ML) 2,500 UNIT in SODIUM CHLORIDE 0.9% 250 ML IRRIGATION ONE (08:27)
[2025-01-26] MEDS: HEPARIN SODIUM (1,000 UNIT/ML) 1,000 UNIT in SODIUM CHLORIDE 0.9% 1,000 ML IRRIGATION ONE (08:27)
[2025-01-26] MEDS: CLOPIDOGREL 75 MG TAB PO ONE (08:33)
[2025-01-26] MEDS: NITROGLYCERIN 1000MCG/10ML SYRINGE INTRAARTER ONE (08:57)
[2025-01-26] MEDS: IOPAMIDOL-370 100ML BTL INJ ONE (09:14)
--- NOTE | 2025-01-26 09:30 | P.PRCINT ---
Percutaneous Coronary Int. - Percutaneous Coronary Intervention Percutaneous Coronary Intervention: PROCEDURES PERFORMED: Left heart catheterization, bilateral coronary angiography, ultrasound guided arterial access, intravascular ultrasound RCA, PCI RCA with a 3.0 x 15 mm Xience drug-eluting stent postdilated with a 3.25 mm noncompliant balloon INDICATION: Abnormal stress test, history of CAD, dyspnea on exertion near card association class II symptoms CONSENT:I have discussed the risks, benefits and alternative therapies for the above-mentioned procedure and for both sedation/analgesia as well as necessary blood product administration, if indicated, as they pertain to this patient. The patient has indicated understanding and acceptance of the risks and procedures discussed. PROCEDURE: After the risks, benefits and alternatives of the above mentioned procedure explained in detail with the patient, informed consent was obtained. Patient was taken to the catheterization lab and prepped and draped in usual fashion. Ultrasound guidance was used to assess for arterial access. 1% lidocaine was used to anesthetize the right radial artery. A 6-[place] sheath was placed in the right radial artery using modified Seldinger technique and ultrasound guidance. Left coronary angiography was performed with a 5-[place] JL 3.5 catheter and right coronary angiography was performed with a 5-[place] AR2 catheter in various views. A 5-[place] AR2 catheter was inserted into the left ventricle and pressure measurements were obtained. Ischemia was in the inferior territory and therefore decision made to perform PCI of the RCA. Heparin was given. A 6 [place] AL 0.75 guide was used to engage the RCA. A 0.014 BMW wire was advanced in the distal RCA. Predilation was performed with a 2.5 x 12 mm balloon. Intravascular ultrasound was performed which showed well-expanded stents from the proximal to mid section however diffuse mid disease and more normal segment of the mid to distal RCA. Reference vessel at the mid to distal RCA was 3.0 to 3.25 mm. Next a 3.0 x 15 mm drug- eluting stent was placed in the mid RCA extending the previous stent. Repeat intravascular ultrasound showed some underexpansion of the stent and therefore the stent was postdilated with a 3.25 mm noncompliant balloon. Final angiograms were performed. Preintervention there was 95% stenosis and GRAZYNA-3 flow and postintervention there was less than 10% stenosis with GRAZYNA-3 flow. The right radial sheath was removed and a TR band was placed with hemostasis achieved. The patient tolerated the procedure well. Patient was transported back to the post catheterization holding area in stable condition. Conscious Sedation: Patient was monitored under the direct supervision of myself for conscious sedation using Versed and fentanyl for a total duration of 54 minutes HEMODYNAMICS: Aorta: 152/78 LV: 151/8, LVEDP 20 SELECTIVE CORONARY ARTERIOGRAPHY: LEFT MAIN: The left main is a large caliber vessel which bifurcates into the LAD and circumflex. There is no significant stenosis. LEFT ANTERIOR DESCENDING CORONARY ARTERY: LAD is a large caliber vessel which wraps around to the apex. There is a patent proximal to mid LAD stent with diffuse 30 to 40% stenosis of the proximal LAD and 20 to 30% stenosis of the mid LAD. LEFT CIRCUMFLEX CORONARY ARTERY: Left circumflex is a moderate caliber vessel with a patent mid circumflex stent and distal circumflex stent. At the distal edge of the circumflex stent where the OM branch is small caliber there is a 50 to 60% stenosis similar to prior. RIGHT CORONARY ARTERY: The right coronary artery is a large caliber vessel which gives off a PDA and PLV branch and is the dominant vessel. There is a patent proximal RCA stent and a patent distal RCA into the PLV stent. Just past the proximal RCA stent there is a 95% mid RCA stenosis. Otherwise there are mild luminal irregularities FINAL IMPRESSION: 1. CAD as described above including 30 to 40% proximal LAD, 50 to 60% small caliber OM1, 95% RCA stenosis 2. Elevated left sided filling pressures 3. S/p PCI RCA with a 3.0 x 15 mm Xience drug-eluting stent postdilated with a 3.25 mm noncompliant balloon PLAN: 1. Aggressive risk factor modification per most recent ACC/AHA guidelines. 2. Continue dual antiplatelets with aspirin and Plavix for 6 months.
[2025-01-26] MEDS ORDERED: ACETAMINOPHEN TAB 500 MG TAB PO PRN (10:06)
[2025-01-26] MEDS ORDERED: MAG HYDROX/AL HYDROX/SIMETH 30 ML CUP PO PRN (10:08)
[2025-01-26] MEDS ORDERED: ZOLPIDEM 5 MG TAB PO PRN (10:08)
[2025-01-26] MEDS ORDERED: RX INFO: IV CONTRAST WAS GIVEN 1 EACH MISC MISCELLANE PRN (10:08)
[2025-01-26] MEDS ORDERED: ATROPINE SULFATE 0.1 MG/ML 10ML SYRINGE IV PRN (10:08)
[2025-01-26 12:07] VITALS: BP 154/74; PULSE 50
[2025-01-26] MEDS ORDERED: ATORVASTATIN 80 MG TAB PO SCH (21:00)
[2025-01-26] MEDS ORDERED: INSULIN GLARGINE (LANTUS) 100 UNIT/ML SYR SQ SCH (21:00)
[2025-01-27] MEDS ORDERED: glipiZIDE 5 MG TAB PO SCH (07:30)
[2025-01-27] MEDS ORDERED: METOPROLOL SUCCINATE (ER) 25 MG TAB.ER.24H PO SCH (09:00)
[2025-01-27] MEDS ORDERED: CLOPIDOGREL 75 MG TAB PO SCH (09:00)
[2025-01-27] MEDS ORDERED: CHONDROITIN PO SCH (09:00)
[2025-01-27] MEDS ORDERED: ASPIRIN 81 MG PO SCH (09:00)
[2025-01-27] MEDS ORDERED: GLUCOSAMINE PO SCH (09:00)
[2025-01-27] MEDS ORDERED: LOSARTAN 25 MG TAB PO SCH (09:00)
== END 2025-01-26 12:47 | disposition home or self-care (01) ==
LOC: CATHCVL 07:10
PROVIDERS: ATTEND Internal Medicine
DX: I25.10 Atherosclerotic heart disease of native coronary artery without angina pectoris (principal); I10 Essential (primary) hypertension; E11.9 Type 2 diabetes mellitus without complications; E78.2 Mixed hyperlipidemia; Z79.02 Long term (current) use of antithrombotics/antiplatelets; Z79.84 Long term (current) use of oral hypoglycemic drugs; Z79.899 Other long term (current) drug therapy; Z79.82 Long term (current) use of aspirin
CPT/HCPCS: 99152; 99153; 92978; 93458; 80048; 85025; C9600; C1769; C1887; C1894; C1725 ×2; C1753; J2250; J1644 ×2; J2003; J3010; Q9967; J2305

== ENCOUNTER → 2025-04-03 | Outpatient (CLI) | payer BC ==
--- NOTE | 2025-04-03 15:13 | CT ---
EXAMINATION TYPE: CT left knee - [facility] Protocol DATE OF EXAM: 04/03/2025 2:06 PM COMPARISON: None. CLINICAL INDICATION: Male, 64 years old with history of M17.12 PRIMARY OSTEOARTHRITIS, LEFT KNEE, pre -op left total knee, pain TECHNIQUE: [facility] presurgical planning of the knee. Images were obtained in the axial plane at 2 mm thi ck sections through the hip and ankle and 1 mm thick sections through the knee. Reconstructed images in the coronal and sagittal plane are reviewed. Contrast used: mL of , (none if empty) Oral contrast used: (none if empty) CT DLP: 497 mGycm, Automated exposure control for dose reduction was used. FINDINGS: Hip: Left femoral head articulates with the acetabulum. There is narrowing of the joint space. No acu te fractures evident. Knee: There is a small joint effusion. There is narrowing of the patellofemoral joint space. There is loss of the medial compartment joint space. Medial femoral condylar spurring is present. Lateral fem oral condylar spurring and tibial plateau spurring is present. Mild narrowing of the lateral compartm ent joint space is present. There are a few subchondral cysts within the medial tibial plateau. Ankle: Ankle mortise is intact. No acute fractures are evident. Joint spaces appear preserved. IMPRESSION: 1. CT for [facility] knee presurgical planning. [facility], , 04/03/2025 3:11 PM
== END | disposition home or self-care (01) ==
LOC: RADCTMAIN 13:21
PROVIDERS: ATTEND Orthopaedic Surgery
DX: Z01.818 Encounter for other preprocedural examination (principal); M17.12 Unilateral primary osteoarthritis, left knee